=== PATIENT | female | born 1940 | race Caucasian/White ===

== ENCOUNTER 2018-12-09 20:25 | Inpatient (IN) ==
[2018-12-09] MEDS ORDERED: SODIUM CHLORIDE 0.9% 1000ML 1,000 ML IV ONE ×3 (21:44→23:19)
[2018-12-09] MEDS ORDERED: ALBUT/IPRATROP 3MG/0.5MG NEB 3 ML VIAL NEB ONE (21:45)
[2018-12-09 21:51] LABS: iSTAT Creatinine 1.9 mg/dl (0.6-1.3); iSTAT Hemoglobin 11.2 g/dl (12.0-16.0); iSTAT Ionized Calcium 1.05 mmol/l (1.12-1.32); iSTAT Potassium 5.4 mEq/L (3.3-5.0)
[2018-12-09 21:55] LABS: Basophils # (auto) 0.03 K/uL (0-0.2); Basophils % (auto) 0.3 %; Eosinophils # (auto) 0.21 K/uL (0-0.5); Eosinophils % (auto) 2.4 %; Hematocrit (blood only) 35.1 % (37-47); Hemoglobin 10.7 g/dL (12.0-16.0); Immature Granulocytes # (auto) 0.07 K/uL (0.00-0.02); Immature Granulocytes % (auto) 0.8 %; Lymphocytes # (auto) 1.93 K/uL (1.2-3.4); Lymphocytes % (auto) 21.8 %; Mean Corpuscular Hgb Conc 30.5 g/dL (32-36); Mean Corpuscular Volume 83.4 fL (80-100); Mean Platelet Volume 10.4 fL (7.4-10.4); Monocytes # (auto) 0.73 K/uL (0.11-0.59); Monocytes % (auto) 8.2 %; Neutrophils # (auto) 5.89 K/uL (1.4-6.5); Neutrophils % (auto) 66.5 %; Platelet Count 230 K/uL (130-400); RDW Coefficient of Variation 20.1 % (11.5-14.5); RDW Standard Deviation 54.5 fL (36.4-46.3); Red Blood Count 4.21 M/uL (4.2-5.4); White Blood Count 8.86 K/uL (4.8-10.8)
[2018-12-09] MEDS ORDERED: HYDROmorphone INJ 0.5 MG/0.5 ML SYR IV PRN (22:04)
[2018-12-09] MEDS ORDERED: ONDANSETRON INJ 2 MG/ML 2 ML VIAL IV STA (22:04)
--- NOTE | 2018-12-09 22:05 | XRay Report ---
XR chest 1V portable HISTORY: 78 years-old Female Sepsis acute sepsis COMPARISON: None available TECHNIQUE: Portable AP view of the chest FINDINGS: Cardiac silhouette is mildly enlarged. Calcification of the thoracic aortic arch. Dual-lead right sub clavian pacer is noted with leads appearing intact. Spinal stimulator leads noted overlying the midth oracic spine. Surgical clips project about the abdominal left upper quadrant. There is no pneumothora x, pleural effusion, focal airspace consolidation or overt pulmonary edema. Multiple remote healed ri ght-sided rib fractures. Postoperative changes of the right shoulder. Degenerative changes of the lópez ulders and spine. IMPRESSION: Cardiomegaly without acute process. The above report was generated using voice recognition software. It may contain grammatical, syntax o r spelling errors. Electronically signed by: Graham Solis M.D. 12/09/2018 10:04 PM
[2018-12-09 22:09] LABS: INR 1.2 (0.9-1.1); Partial Thromboplastin Time 26.4 Seconds (21.0-31.0); Prothrombin Time 11.9 Seconds (9.0-12.0)
[2018-12-09 22:13] LABS: Albumin Level 2.8 gm/dl (3.4-5.0); BUN Creatinine Ratio 20.5 (10-20); Blood Urea Nitrogen 39 mg/dl (7-18); Carbon Dioxide 22 mmol/L (21-32); Chloride 105 mmol/L (98-107); Creatinine Clr Calc Pharmacy 30.3 ml/min; Glucose 175 mg/dl (70-99); Potassium 5.6 mmol/L (3.5-5.1); Sodium 137 mmol/L (136-145)
[2018-12-09 22:19] LABS: Alanine Aminotransferase 57 U/L (12-78); Albumin Globulin Ratio 0.8 (0.9-2); Alkaline Phosphatase 86 U/L (45-117); Aspartate Aminotransferase 36 U/L (15-37); Bilirubin,Total 0.4 mg/dl (0.2-1); Creatine Kinase 58 U/L (26-192); Creatine Kinase MB 2.1 ng/ml (0.5-3.6); Globulin 3.7 gm/dl (2.5-4.0); Total Protein 6.5 gm/dl (6.4-8.2); Troponin I < 0.015 ng/ml (0-0.045)
[2018-12-09 22:39] LABS: Anisocytosis Present; Ovalocytes 1+; Pappenheimer Bodies 1+
[2018-12-09 22:40] LABS: Influenza A virus by PCR Neg for Influ A (Neg); Influenza B virus by PCR Neg for Influ B (Neg)
[2018-12-09] MEDS ORDERED: OPTIRAY 320 125ml IV PRN (22:46)
[2018-12-09] MEDS ORDERED: VANCOMYCIN CONSULT ACTIVE PRN (22:56)
[2018-12-09] MEDS ORDERED: PIPERACILL/TAZOBAC CONSULT ACTIVE PRN (22:56)
[2018-12-09] MEDS ORDERED: VANCOMYCIN HCL 2,000 MG in SODIUM CHLORIDE 0.9% 500 ML IV ONE (22:56)
[2018-12-09] MEDS ORDERED: PIPERACILLIN/TAZOBACTAM 4.5 GM/120 ML BAG IV ONE (22:56)
[2018-12-09] MEDS ORDERED: LEVOFLOXACIN/D5W 750 MG/150 ML BAG IV STA (22:56)
--- NOTE | 2018-12-09 23:02 | CT Scan Report ---
CT angio chest PE protocol CT DOSE: 697.32 mGy.cm HISTORY: 78 years-old Female with PE. Acute shortness of breath TECHNIQUE: Multiple CTA images of the chest were obtained after the intravenous administration of 113 ml Optiray 320. Coronal and sagittal MIPS were obtained from the axial data set and were submitted for review. All measurements were obtained according to NASCET criteria. A dose lowering technique w as utilized adhering to the principles of ALARA. COMPARISON: Chest radiograph of same day FINDINGS: Study is limited with a large portion of the contrast bolus infiltrating into the subcutaneous left u pper chest wall. CTA: Mild multichamber cardiac enlargement with small pericardial effusion. Left subclavian pacer is noted with leads overlying the right atrium and right ventricle. Aortic and mitral annular calcifications are noted in addition to coronary arterial calcifications. No thoracic aortic aneurysm or dissection. Patency of the imaged great vessels. Tortuosity of the descending thoracic aorta. Pulmonary arterial tree is opacified to the level of the lobar branches and demonstrates no focal filling defects to villalta ggest pulmonary thromboembolic disease. CT CHEST: No dominant thyroid nodule or adenopathy by CT size criteria. No pneumothorax or pleural effusion. Mi ld subsegmental bibasilar atelectasis. No focal airspace consolidation to suggest ammonia. 3 mm solid nodule of the right middle lobe, image 82 series 4. Additionally, there are a few benign-appearing a reas of subpleural nodularity measuring up to 3 mm the upper lung zones suggestive of benign pleural parenchymal scarring. 2 mm solid nodule of the right middle lobe on image 111 series 4. No suspicious nodules or masses. Central airways appear patent. No acute process of the imaged upper abdomen. Postoperative changes of the stomach. Mild wall thicken ing noted about the mid and distal esophagus. Spinal stimulator device is noted in the posterior late ral tissues about the midthoracic spine. Postoperative changes of the right shoulder. Multiple healed remote right-sided rib fractures. Demineralized appearance of the bones. IMPRESSION: 1. Limited study with a large portion of the contrast bolus infiltrated into the subcutaneous tissues about the left chest wall. 2. No evidence of central pulmonary thromboembolic disease. 3. Cardiomegaly with small pericardial effusion. 4. Multiple likely benign scattered solid pulmonary nodules measure up to 3 mm. Please refer to below summary of Fleischner criteria recommendations for follow-up of incidental CT n odules Sanjana Thomson, Guidelines for management of small pulmonary nodules detected on CT scans: A neisha smart from the Fleischner Society, Radiology 237: [phone].) SOLID NODULES Multiple nodules size: <6 mm * Low risk patients: no routine follow-up * high risk patients: optional CT at 12 months Note: newly detected indeterminate nodule in persons 35 years of age or older. * Low risk patients: minimal or absent history of smoking and/or other known risk factors * high risk patients: history of smoking or of other known risk factors (e.g. first degree relative with lung cancer, or exposure to asbestos, radon, uranium) * if a nodule up to 8 mm is partly solid or is ground glass further follow-up is required after 24 m onths to exclude possible slow growing adenocarcinoma (DIANA) The above report was generated using voice recognition software. It may contain grammatical, syntax o r spelling errors. Electronically signed by: Graham Solis M.D. 12/09/2018 10:59 PM
[2018-12-09] MEDS ORDERED: HYDROCORTISONE SOD SUCCINATE 100 MG/2 ML VIAL IV STA (23:30)
--- NOTE | 2018-12-10 00:56 | History & Physical Report ---
Date of Service December 10, 2018 Assessment & Plan (1) Hypotension: Ms. 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 ED Course: Patient found to be hypotensive on arrival with BP as low as 80s/40s. Patient received 3L NS bolus, 100mg IV hydrocortisone, duonebs, 4mg IV zofran, 4.5gm IV Zosyn, 2g IV vancomycin and 750mg IV Levaquin. -admit to telemetry -ddx for hypotension: dehydration, adrenal insufficiency, sepsis -at time of my examination, pt's BP was improved to 105/70 -patient had an elevated BUN of 39 and creatinine of 1.91. I do not have a baseline creatinine level for her, however her chart reveals her creatinine was 1.3 on 12/07/2018, with a BUN of 33. -her lactic acid was elevated to 3.8 on arrival, which could also be related to her hypotension. We will repeat a level in 6 hours -continue NS at 100 mls/hr x2 bags and hydrocortisone 50mg IV q8h -blood cx drawn x2 and pending -continue zosyn and vancomycin empirically -no evidence of pneumonia on chest CTA. Will order UA, however abx have already been started -no hx of CHF noted on transfer paperwork, will order an ECHO Hypoxia -transient, patient saturating at 100% on RA upon time of my exam -no evidence of acute pulmonary disease seen on CTA -continue to monitor -consider CHRISTIANNE as cause of transient desaturation Decreased Peripheral Pulses -b/l LE cool to touch w/diminished LE pulses and sluggish cap refill -no mention of PVD on pt's chart -vascular checks ordered, will also order b/l LE arterial dopplers History of CVA -no new neuro deficits noted -continue home aspirin -eventual d/c to inpatient rehab again Atrial Fibrillation/Tachy-marlene Syndrome -s/p pacemaker placement -continue home metoprolol, amiodarone and Eliquis Diabetes Mellitus -hold home metformin and insulin -BSG AC/HS and ISS ordered Anemia -Hgb was 10.2 on 12/07/2018. Hgb 10.7 here -normal MCV, no record of anemia on problem list -continue home iron supplementation Hypercholesterolemia -continue home atorvastatin GERD -continue home pantoprazole Restless Leg Syndrome -reportedly on gabapentin for this, continue home gabapentin Lung Nodules -seen on CTA, outpatient f/u Code status: DNR as per discussion with patient DVT Prophylaxis: continue home eliquis Disposition: admit to telemetry F/E/N: Heart Healthy and Diabetic Diet. Potassium high at 5.6. NS at 100 mls/hr x2 bags (2) Lactic acidosis: (3) History of CVA (cerebrovascular accident): (4) Diabetes mellitus: (5) Atrial fibrillation: (6) Pacemaker: (7) Hypercholesteremia: (8) Anemia: History of Present Illness Primary Care Provider: Albert Groves Ms. 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 Per review of chart, [facility] was unable to obtain an SPO2 level while Ms. Restrepo was on room air. They placed her on 4 L oxygen via nasal cannula, at which time her O2 saturations were 90%. They reported her nailbeds were cyanotic, and the patient was complaining of being extremely nauseous and fatigued. Ms. Restrepo endorses having felt "funny", cold, nauseous and short of breath. She denies any fever or chills, and states that she is not currently in any pain anywhere. She denies chest pain, lightheadedness, dizziness, palpitations, vomiting, or abdominal pain. She states that she has difficulty with weakness over the right side of her body and with word finding, but she states this has been constant since her recent stroke. She reports no other complaints at this time. She states that she has been eating fine, and has not been ill recently. She does endorse decreased water intake, stating that she prefers to drink tea. Allergies Allergy/AdvReac Type Severity Reaction Status Date / Time morphine Allergy Unknown Verified 12/09/18 21:35 oxycodone Allergy Unknown Verified 12/09/18 21:35 Home Medications Home Medications Medication Instructions Recorded Confirmed Type acetaminophen [Tylenol Extra 500 mg PO Q4 PRN 12/09/18 12/09/18 History Strength] amiodarone 200 mg PO Q12 12/09/18 12/09/18 History apixaban [Eliquis] 5 mg PO BID 12/09/18 12/09/18 History aspirin [Aspir-81] 81 mg PO DAILY 12/09/18 12/09/18 History atorvastatin 40 mg PO DAILY 12/09/18 12/09/18 History docusate sodium 100 mg PO BID 12/09/18 12/09/18 History ferrous sulfate 325 mg PO DAILY 12/09/18 12/09/18 History gabapentin 100 mg PO Q12 12/09/18 12/09/18 History insulin aspart U-100 [Novolog 1 sliding scale dose SUBCUT UD 12/09/18 12/09/18 History U-100 Insulin aspart] metformin 1,000 mg PO QAM 12/09/18 12/09/18 History metformin 500 mg PO QDD 12/09/18 12/09/18 History metoprolol succinate 25 mg PO DAILY 12/09/18 12/09/18 History nitroglycerin [Nitrostat] 0.4 mg SUBLINGUAL UD PRN 12/09/18 12/09/18 History pantoprazole 40 mg PO BID 12/09/18 12/09/18 History sennosides [senna] 8.6 mg PO DAILY 12/09/18 12/09/18 History Past Med/Surg History Social History Preferred Language: Greenlandic Communication Ability: Effective Clinical Unit Coordinator Required: No Beliefs That Will Affect Care: None Current Living Situation: Rehab current occupational status: retired Other Information That Helps Us Care for You: No Feels Safe at Home: Yes Safety Concerns: Feels Safe At This Time Smoking Status: Unknown if ever smoked Hx Alcohol Use: No Hx Substance Use: No Review of Systems Constitutional: + fatigue and + weakness; no fever, no chills, no sweats and no anorexia Respiratory: no cough and no wheezing Cardiovascular: no chest pain, no palpitations, no lightheadedness, no syncope, no edema and no calf pain Gastrointestinal: + nausea; no abdominal pain, no vomiting and no change in bowel habits Genitourinary (Female): no dysuria Musculoskeletal: + joint pain (right hip pain) Integumentary: no rash and no lesions Neurologic: + localized weakness (right side of body) and + abnormal speech Physical Exam Vital Signs (Past 24 Hours): Last Vital Signs Temp 36.6 C 12/09/18 20:29 Pulse 93 H 12/10/18 00:15 Resp 18 12/10/18 00:15 BP 95/50 L 12/10/18 00:15 Pulse Ox 99 12/10/18 00:15 Constitutional: well developed, well nourished, cooperative and comfortable Eyes: PERRL, conjunctivae normal, anicteric sclerae ENMT: external ear and nose normal, oropharynx normal Respiratory: normal respiratory effort, lungs clear to auscultation Cardiovascular: RRR, no murmur, no edema Vessels: posterior tibial pulses present (diminished b/l), dorsalis pedis pulses present (diminished b/l) and radial pulses present Extremities: normal capillary refill (sluggish cap refill, left slower than right) and + pedal edema; no calf tenderness Chest (Breasts): Additional Comments: longitudinal incision over right side of chest, healing well. No drainage noted. Right arm in sling. Gastrointestinal (Abdomen): Percussion/Palpation: abdomen soft; abdomen nontender, no guarding and abdomen not rigid Skin: multiple ecchymoses over arms b/l Neurologic: AXO x3 Difficulty w/word-finding. Right upper and lower extremity weaker compared w/left side. Supervising Physician Co-Signing Physician Notes 78 y/o F Hx recent MCA CVA, right-sided weakness and aphasia, CAD post stent placement, DM II, AF, HTN, HLD. At an NH where she was acutely hypoxic and proved hypotensive as well on arrival to the ER. Interestingly, she does not display any respiratory issues on arrival to the ER, however, she was hypotensive. Peripheral cyanosis was reported which persists and appears chronic. OE: Awake and oriented without 02 requirements S1,2 irr CTAB NT, ND BL edema Deficits are residual No CCE P: Initial precipitating episode is unclear at present - after a fluid bolus her pressure improved. She was given a dose of steroids and placed on Cortef. She is not hypoxic on admission and there is no clear evidence of infection. Adrenal insufficiency due to embolism/infarct is unlikely but should be entertained. An arrhythmia or rapid AF for a period may also have been a possibility. She is on Amiodarone ad eliquis for AF and rate controlled on admission. If she remains stable and no diagnosis is apparent, we could consider DC in the afternoon. Resident Activity Tracking Resident Involvement: Resident Care Provided Care Provided: Adult Hospital Medicine
[2018-12-10] MEDS ORDERED: CARBOHYDRATES FOR HYPOGLYCEMIA PO PRN (03:06)
[2018-12-10] MEDS ORDERED: ACETAMINOPHEN 325 MG TAB PO PRN (03:06)
[2018-12-10] MEDS ORDERED: GLUCAGON FOR INJ 1 MG VIAL SQ PRN (03:06)
[2018-12-10] MEDS ORDERED: GLUCOSE 10 TABS/TUBE PO PRN (03:06)
[2018-12-10] MEDS ORDERED: GLUCOSE 40% GEL 15 GM TUBE PO PRN (03:06)
[2018-12-10] MEDS ORDERED: DEXTROSE 50% 50 ML SYRINGE IV PRN (03:06)
[2018-12-10] MEDS: SODIUM CHLORIDE 0.9% 1000ML 1,000 ML IV SCH ×2 (03:45→12:47)
[2018-12-10] MEDS: PIPERACILLIN/TAZOBACTAM 3.375 GM in DEXTROSE 5% 100 ML IV SCH ×3 (05:11→21:38)
[2018-12-10 06:51] LABS: Basophils # (auto) 0.01 K/uL (0-0.2); Basophils % (auto) 0.2 %; Eosinophils # (auto) 0.01 K/uL (0-0.5); Eosinophils % (auto) 0.2 %; Hematocrit (blood only) 31.1 % (37-47); Hemoglobin 9.5 g/dL (12.0-16.0); Immature Granulocytes # (auto) 0.04 K/uL (0.00-0.02); Immature Granulocytes % (auto) 0.6 %; Lymphocytes # (auto) 0.64 K/uL (1.2-3.4); Lymphocytes % (auto) 9.8 %; Mean Corpuscular Hgb Conc 30.5 g/dL (32-36); Mean Corpuscular Volume 83.4 fL (80-100); Monocytes # (auto) 0.11 K/uL (0.11-0.59); Monocytes % (auto) 1.7 %; Neutrophils % (auto) 87.5 %; Platelet Count 191 K/uL (130-400); RDW Standard Deviation 54.7 fL (36.4-46.3); Red Blood Count 3.73 M/uL (4.2-5.4); White Blood Count 6.51 K/uL (4.8-10.8)
[2018-12-10 07:17] LABS: Anisocytosis Present
[2018-12-10 07:22] LABS: BUN Creatinine Ratio 22.2 (10-20); Calcium 7.7 mg/dl (8.5-10.1); Creatinine Clr Calc Pharmacy 37.8 ml/min; Est GFR (African American) 38.5; Est GFR (Non-African American) 33.2; Potassium 5.5 mmol/L (3.5-5.1)
[2018-12-10] MEDS ORDERED: HYDROCORTISONE SOD 50 MG in SYRINGE 0 ML IV SCH (08:00)
[2018-12-10] MEDS ORDERED: HYDROCORTISONE SOD SUCCINATE 100 MG/2 ML VIAL IV SCH (08:00)
[2018-12-10] MEDS: ATORVASTATIN 40 MG TAB PO SCH (08:35)
[2018-12-10] MEDS: PANTOprazole 40 MG TAB PO SCH ×2 (08:35→21:43)
[2018-12-10] MEDS: FERROUS SULFATE 325 MG TAB PO SCH (08:35)
[2018-12-10] MEDS: SENNA 8.6 MG TAB PO SCH (08:35)
[2018-12-10] MEDS: GABAPENTIN 100 MG CAP PO SCH ×2 (08:35→21:42)
[2018-12-10] MEDS: AMIODARONE 200 MG TAB PO SCH ×2 (08:36→21:42)
[2018-12-10] MEDS: METOPROLOL SUCC 25MG EXT REL TAB PO SCH (08:36)
[2018-12-10] MEDS: DOCUSATE SODIUM 100 MG CAP PO SCH ×2 (08:36→21:42)
[2018-12-10] MEDS: INSULIN ASPART 100 UNITS/ML 3 ML PEN SC SCH ×4 (08:36→21:45)
[2018-12-10] MEDS: APIXABAN 5 MG TABLET PO SCH ×2 (08:36→21:42)
[2018-12-10] MEDS: ASPIRIN 81 MG ECTAB PO SCH (08:36)
[2018-12-10] MEDS ORDERED: ONDANSETRON INJ 2 MG/ML 2 ML VIAL ONE (10:59)
[2018-12-10] MEDS: ONDANSETRON INJ 2 MG/ML 2 ML VIAL IV PRN (11:00)
--- NOTE | 2018-12-10 13:32 | Pharmacy Report ---
Pharmacy Abx Dose Short Note - Date of Service December 10, 2018 - Assessment & Plan A/P Pt being started on empiric vanco and zosyn. Renal fxn looks to be returning to her baseline. Pt population p'kinetics: t1/2=19, ke=0.0559. No trough ordered unless vanco is to continue beyond 48hrs. EI Zosyn 3.375g IV q8, appropriate for clinical status and eCrCl>20cc/min Pharmacy will continue to follow and will adjust dose/frequency as necessary. Thank you.
--- NOTE | 2018-12-10 15:40 | Family Medicine Progress Note ---
Date of Service December 10, 2018 Assessment & Plan (1) Hypotension: 78-year-old female was admitted (transferred from [facility]) on 10 December 2018 for hypoxia, cyanosis, and increased fatigue. Hypotension: Per [facility] records, initial BP was 94/66. Comparison on 26Feb was 118/66. Initial cause thought to be multifactorial to include dehydration and adrenal insufficiency. Afebrile, no leukocytosis, and lactate 3.8 (improving). Given IV fluids and hydrocortisone. 03Mar BCx pending. Started empirically on Zosyn and vancomycin as well as hydrocortisone every 8 hours. It is unclear if there is an infectious source causing this relative mild hypotension. - Will stop the vancomycin (due to nasal MRSA negative). We will also stop empiric hydrocortisone and check an a.m. cortisol. - For now, will remain on Zosyn until blood cultures return. Hypoxia: Per report, OSH was unable to obtain an SpO2 level initially and then was 90% on 4 L nasal cannula oxygen. Here, no hypoxia noted on room air. Monitoring. Decreased peripheral pulses: On admit, BLE were cool to touch with diminished pulses. No report of PVD and PMH. - Ordered BLE arterial Dopplers. Elevated creatinine: Initial Cr 1.91, improved to 1.51 with IVF. Elevated BUN, improving, as well. No recent creatinine comparisons available. Is on IV fluids. Hyperkalemia: Initial K 5.6. EKG is afib with PVC. Is on the forensic accountant. Will recheck in a.m. Anemia: Admit hemoglobin 10.7, down to 9.5 after IVF rehydration. Is on iron. Monitoring. Lung nodules: Per CTA chest, "multiple likely benign scattered solid pulmonary nodules measure up to 3 mm". Recommend follow-up as outpatient. 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 No new neuro deficits noted. On aspirin. - Hypertension, CAD s/p stent placement: On metoprolol succinate 25 mg PO daily. - Hyperlipidemia: Continue home atorvastatin. - Type II DM: At home is on metformin and NovoLog. - Atrial fibrillation and tachybradycardia syndrome s/p pacemaker placement: Continue home metoprolol, amiodarone, Eliquis. - GERD: Continue home pantoprazole. - Restless leg syndrome: Is on gabapentin for this. - Depression. Code status: DO NOT RESUSCITATE. Diet: Heart healthy, DM 2, minced and moist. DVT prophy: On home Eliquis. PT/OT: Deferred on admit. Disbo: Admitted to PCU telemetry. Will likely need to return to [facility] on discharge. (2) Hypoxia: (3) Decreased pulses in feet: (4) Elevated serum creatinine: (5) Hyperkalemia: (6) Anemia: (7) Lung nodules: (8) History of CVA (cerebrovascular accident): (9) Hypertension: (10) Hypercholesteremia: (11) Diabetes mellitus: (12) Atrial fibrillation: (13) Tachycardia-bradycardia syndrome: (14) GERD (gastroesophageal reflux disease): (15) Restless leg syndrome: (16) Depression: Supervising Physician Co-Signing Physician Notes Patient seen and examined with the resident. Agree with history, physical exam, assessment and plan with the following updates/corrections: 78yo F at [facility] for CVA who presented with hypoxemia and mild hypotension. Today, in good spirits. No distress and no focal complaints. BP remains low-normal, but otherwise in no distress. 1) Hypoxemia - Unclear etiology though possibly a mis-read as the patient has had good O2 sat on room air while inpatient. Will continue to monitor. 2) Hypotension - Per resident note, last BP read we have was ~115/70, so lower than baseline, but no by far. Possibly due to hypotension. Will monitor and give IV fluids until we can assess PO intake. Will also monitor hgb as could be from bleeding. 3) CKD - Baseline Cr unclear, but down to 1.5 from 1.9 on admission after IV hydration. Monitor Cr. Subjective Found patient resting comfortably. She has some expressive aphasia when trying to answer questions with more than a 1-2 word response. From what I can tell, overall she is not in any pain. She seems overall quite upbeat did not seem to try to be expressing any particular concern. Physical Exam Vital Signs (Past 24 Hours): Last Vital Signs Temp 36.7 C 12/10/18 10:47 Pulse 78 12/10/18 10:47 Resp 19 12/10/18 10:47 BP 98/42 L 12/10/18 10:47 Pulse Ox 94 12/10/18 07:44 Physical Exam: General Appearance: Awake, alert & oriented, comfortable in general, NAD. CV: +S1S2 RRR, no murmur. Pulm: Clear to auscultation throughout. Abdomen: +BS, soft, non-tender, non-distended. Extremities: Trace pedal edema bilaterally. No calf tenderness. Moving all extremities naturally and easily. Distal extremities are warm with good cap refill. Neuro: She is moving her bilateral upper extremities naturally without obvious deficit. There is some mild decreased strength on the right compared to left on strength testing. Similarly, she can wiggle her bilateral toes but has some difficulty with lifting her right leg off the bed. Results & Data Laboratory Results Laboratory Results WBC 6.51 K/uL (4.8-10.8) 12/10/18 06:19 RBC 3.73 M/uL (4.2-5.4) L 12/10/18 06:19 Hgb 9.5 g/dL (12.0-16.0) L 12/10/18 06:19 POC Hgb 11.2 g/dl (12.0-16.0) L 12/09/18 21:36 Hct 31.1 % (37-47) L 12/10/18 06:19 POC Hct 33 % (37-47) L 12/09/18 21:36 MCV 83.4 fL (80-100) 12/10/18 06:19 MCH 25.5 pg (25-34) 12/10/18 06:19 MCHC 30.5 g/dL (32-36) L 12/10/18 06:19 RDW Std Deviation 54.7 fL (36.4-46.3) H 12/10/18 06:19 RDW Coeff of Josselin 20.0 % (11.5-14.5) H 12/10/18 06:19 Plt Count 191 K/uL (130-400) 12/10/18 06:19 MPV 10.0 fL (7.4-10.4) 12/10/18 06:19 Immature Gran % (Auto) 0.6 % 12/10/18 06:19 Neut % (Auto) 87.5 % 12/10/18 06:19 Lymph % (Auto) 9.8 % 12/10/18 06:19 [place] % (Auto) 1.7 % 12/10/18 06:19 Eos % (Auto) 0.2 % 12/10/18 06:19 Baso % (Auto) 0.2 % 12/10/18 06:19 Immature Gran # (Auto) 0.04 K/uL (0.00-0.02) H 12/10/18 06:19 Neut # (Auto) 5.70 K/uL (1.4-6.5) 12/10/18 06:19 Lymph # (Auto) 0.64 K/uL (1.2-3.4) L 12/10/18 06:19 [place] # (Auto) 0.11 K/uL (0.11-0.59) 12/10/18 06:19 Eos # (Auto) 0.01 K/uL (0-0.5) 12/10/18 06:19 Baso # (Auto) 0.01 K/uL (0-0.2) 12/10/18 06:19 Hypersegmented Neuts 1+ 12/09/18 21:46 Anisocytosis Present 12/10/18 06:19 Pappenheimer Bodies 1+ 12/09/18 21:46 Ovalocytes 1+ 12/09/18 21:46 PT 11.9 Seconds (9.0-12.0) 12/09/18 21:46 INR 1.2 (0.9-1.1) H 12/09/18 21:46 APTT 26.4 Seconds (21.0-31.0) 12/09/18 21:46 PTT Ratio 1.0 12/09/18 21:46 POC Sodium 138 mEq/L (135-144) 12/09/18 21:36 Sodium 140 mmol/L (136-145) 12/10/18 06:19 POC Potassium 5.4 mEq/L (3.3-5.0) H 12/09/18 21:36 Potassium 5.5 mmol/L (3.5-5.1) H 12/10/18 06:19 POC Chloride 106 mEq/L (101-112) 12/09/18 21:36 Chloride 109 mmol/L (98-107) H 12/10/18 06:19 Carbon Dioxide 22 mmol/L (21-32) 12/10/18 06:19 POC Total CO2 23 mEq/l (24-31) L 12/09/18 21:36 Anion Gap 9.0 (3-11) 12/10/18 06:19 POC Anion Gap 16.0 mmol/L (16-25) 12/09/18 21:36 POC BUN 41 mg/dl (7-18) H 12/09/18 21:36 BUN 34 mg/dl (7-18) H 12/10/18 06:19 Creatinine 1.51 mg/dl (0.6-1.2) H D 12/10/18 06:19 POC Creatinine 1.9 mg/dl (0.6-1.3) H 12/09/18 21:36 Est Cr Clr Drug Dosing 37.8 ml/min 12/10/18 06:19 Est GFR ( Amer) 38.5 12/10/18 06:19 Est GFR (Non-Af Amer) 33.2 12/10/18 06:19 BUN/Creatinine Ratio 22.2 (10-20) H 12/10/18 06:19 Glucose 218 mg/dl (70-99) H 12/10/18 06:19 POC Glucose 315 (70-99) H 12/10/18 16:25 POC Glucose (other) 176 mg/dl (70-99) H 12/09/18 21:36 Lactate 2.1 mmol/L (0.4-2.0) H* 12/10/18 03:34 Calcium 7.7 mg/dl (8.5-10.1) L 12/10/18 06:19 POC Ioniz Calcium Ujlia 1.05 mmol/l (1.12-1.32) L 12/09/18 21:36 Total Bilirubin 0.4 mg/dl (0.2-1) 12/09/18 21:46 AST 36 U/L (15-37) 12/09/18 21:46 ALT 57 U/L (12-78) 12/09/18 21:46 Alkaline Phosphatase 86 U/L (45-117) 12/09/18 21:46 Total Creatine Kinase 58 U/L (26-192) 12/09/18 21:46 CK-MB (CK-2) 2.1 ng/ml (0.5-3.6) 12/09/18 21:46 CK/CKMB % Calc 3.6 (0-3.0) H 12/09/18 21:46 Troponin I < 0.015 ng/ml (0-0.045) 12/09/18 21:46 Total Protein 6.5 gm/dl (6.4-8.2) 12/09/18 21:46 Albumin 2.8 gm/dl (3.4-5.0) L 12/09/18 21:46 Globulin 3.7 gm/dl (2.5-4.0) 12/09/18 21:46 Albumin/Globulin Ratio 0.8 (0.9-2) L 12/09/18 21:46 Random Cortisol 66.11 mcg/dl 12/09/18 23:38 Nasal Screen MRSA (PCR) Negative (Negative) 12/10/18 03:38 Influenza Type A (PCR) Neg for Influ A (Neg) 12/09/18 21:55 Influenza Type B (PCR) Neg for Influ B (Neg) 12/09/18 21:55 Medications Administered Current Inpatient Medications Acetaminophen (Tylenol) 650 mg PO Q4H PRN PRN Reason: Pain or Fever Stop: 01/09/19 03:05 Amiodarone HCl (Cordarone) 200 mg PO Q12 [facility] Stop: 01/09/19 08:59 Last Admin: 12/10/18 08:36 Dose: 200 mg Documented by: Apixaban (Eliquis) 5 mg PO BID [facility] Stop: 01/09/19 08:59 Last Admin: 12/10/18 08:36 Dose: 5 mg Documented by: Aspirin (Ecotrin Ectab) 81 mg PO DAILY [facility] Stop: 01/09/19 08:59 Last Admin: 12/10/18 08:36 Dose: 81 mg Documented by: Atorvastatin Calcium (Lipitor) 40 mg PO DAILY [facility] Stop: 01/09/19 08:59 Last Admin: 12/10/18 08:35 Dose: 40 mg Documented by: Dextrose (Dextrose 50%) 25 - 50 ml IV UD PRN; Protocol PRN Reason: Hypoglycemia Protocol Stop: 01/09/19 03:05 Docusate Sodium (Colace) 100 mg PO BID [facility] Stop: 01/09/19 08:59 Last Admin: 12/10/18 08:36 Dose: 100 mg Documented by: Ferrous Sulfate (Feosol) 325 mg PO DAILY [facility] Stop: 01/09/19 08:59 Last Admin: 12/10/18 08:35 Dose: 325 mg Documented by: Gabapentin (Neurontin) 100 mg PO Q12 [facility] Stop: 01/09/19 08:59 Last Admin: 12/10/18 08:35 Dose: 100 mg Documented by: Glucagon (Glucagen) 1 mg SQ UD PRN; Protocol PRN Reason: Hypoglycemia Protocol Stop: 01/09/19 03:05 Glucose (Glucose 40%) 15 - 30 gm PO UD PRN; Protocol PRN Reason: Hypoglycemia Protocol Stop: 01/09/19 03:05 Glucose (Dex4 Glucose) 4 - 8 tabs PO UD PRN; Protocol PRN Reason: Hypoglycemia Protocol Stop: 01/09/19 03:05 Sodium Chloride (Nss 1000ml) 1,000 mls @ 100 mls/hr IV .Q10H [facility] Stop: 12/10/18 23:05 Last Admin: 12/10/18 12:47 Dose: 100 mls/hr Documented by: Piperacillin Sod/Tazobactam (Sod 3.375 gm/ Dextrose) 115 mls @ 28.75 mls/hr IV Q8H [facility]; Protocol Stop: 12/17/18 03:59 Last Infusion: 12/10/18 15:05 Dose: Infused Documented by: Insulin Aspart (Novolog Flexpen) 0 units SC ACHS [facility] Stop: 01/09/19 07:29 Last Admin: 12/10/18 12:44 Dose: 3 units Documented by: Ioversol (Optiray 320 125ml) 113 ml IV ONCE PRN PRN Reason: Interaction Checking Stop: 12/13/18 22:45 Last Admin: 12/09/18 22:46 Dose: 1 ml Documented by: Metoprolol Succinate (Toprol Xl) 25 mg PO DAILY [facility] Stop: 01/09/19 08:59 Last Admin: 12/10/18 08:36 Dose: 25 mg Documented by: Miscellaneous (Carbohydrates For Hypoglycemia) 15 - 30 gm PO UD PRN PRN Reason: Hypoglycemia Treatment Stop: 01/09/19 03:05 Miscellaneous Information (Consult) 1 ea N/A UD PRN PRN Reason: Consult Stop: 01/08/19 22:55 Ondansetron HCl (Zofran) 4 mg IV Q6H PRN PRN Reason: Nausea Stop: 01/09/19 10:43 Last Admin: 12/10/18 11:00 Dose: 4 mg Documented by: Pantoprazole Sodium (Protonix) 40 mg PO BID [facility] Stop: 01/09/19 08:59 Last Admin: 12/10/18 08:35 Dose: 40 mg Documented by: Sennosides (Senokot) 8.6 mg PO DAILY [facility] Stop: 01/09/19 08:59 Last Admin: 12/10/18 08:35 Dose: 8.6 mg Documented by: Resident Activity Tracking Resident Involvement: Resident Care Provided Care Provided: Adult Hospital Medicine
--- NOTE | 2018-12-10 16:51 | Ultrasound Report ---
US arterial duplex LE BI CLINICAL HISTORY: 78 years-old Female presenting with diminished pulses, dusky appearing. TECHNIQUE: Real-time grayscale and color and spectral Doppler ultrasound imaging of the arteries was performed. Measurements calculated based on NASCET criteria. COMPARISON: None. FINDINGS: RIGHT: Common femoral artery: Patent. Triphasic waveforms. Peak systolic velocity (PSV) 101 cm/s. Deep femoral artery: Patent. Biphasic waveforms. PSV 89 cm/s. Superficial femoral artery: Patent. Monophasic waveforms. PSV 83 cm/s. Popliteal artery: Patent. Monophasic waveforms. PSV 53 cm/s. Anterior tibial artery: Patent. Monophasic waveforms. PSV 34 cm/s. Posterior tibial artery: Not visualized due to extensive shadowing related to subcutaneous tissue thi ckening. Peroneal artery: Not visualized due to extensive shadowing related to subcutaneous tissue thickening. Dorsalis pedis: Patent. Monophasic waveforms. PSV 17 cm/s. LEFT: Common femoral artery: Patent. Triphasic waveforms. Peak systolic velocity (PSV) 100 cm/s. Deep femoral artery: Patent. Triphasic waveforms. PSV 122 cm/s. Superficial femoral artery: Patent. Biphasic waveforms. PSV 113 cm/s. Popliteal artery: Patent. Triphasic waveforms. PSV 71-132 cm/s. Anterior tibial artery: Patent. Monophasic waveforms. PSV 16 cm/s. Posterior tibial artery: Not visualized due to extensive shadowing related to subcutaneous tissue thi ckening. Peroneal artery: Not visualized due to extensive shadowing related to subcutaneous tissue thickening. Dorsalis pedis: Patent. Monophasic waveforms. PSV 17 cm/s. ANKLE/BRACHIAL INDEX (LI): Unable to perform due to patient intolerance. Brachial: Right: mmHg. Left: mmHg. Ankle (posterior tibial): Right: mmHg. Left: mmHg. Ankle (dorsalis pedis): Right: mmHg. Left: mmHg. Ankle/brachial index: Right: , Left: . Reference ranges: Normal Ankle/Brachial Index (LI) 1.0-1.4; 0.91-0.99 borderline; < or = 0.9 abnormal (0.7-0.89 mild, 0.51-0.69 moderate, < or = 0.5 severe peripheral arterial disease). Normal Toe/Brachial Index (TBI) > or = 0.6; < 0.6 abnormal (0.34-0.59 mild, 0.12-0.34 moderate, < or = 0.11 severe peripheral arterial disease). IMPRESSION: 1. No hemodynamically significant stenosis. Monophasic waveforms throughout the lower extremities villalta ggests diffuse atherosclerosis. 2. Nonvisualization of the bilateral posterior tibial and peroneal arteries due to subcutaneous skin thickening. 3. Unable to perform ankle-brachial indices. Electronically signed by: Duncan Cornelius M.D. 12/10/2018 4:50 PM
[2018-12-10] MEDS ORDERED: VANCOMYCIN HCL 1,250 MG in SODIUM CHLORIDE 0.9% 250 ML IV SCH (22:00)
[2018-12-11] MEDS: PIPERACILLIN/TAZOBACTAM 3.375 GM in DEXTROSE 5% 100 ML IV SCH (05:21)
[2018-12-11 07:24] LABS: Basophils # (auto) 0.04 K/uL (0-0.2); Basophils % (auto) 0.5 %; Eosinophils # (auto) 0.13 K/uL (0-0.5); Eosinophils % (auto) 1.7 %; Hematocrit (blood only) 29.2 % (37-47); Hemoglobin 8.9 g/dL (12.0-16.0); Immature Granulocytes # (auto) 0.03 K/uL (0.00-0.02); Immature Granulocytes % (auto) 0.4 %; Lymphocytes # (auto) 1.85 K/uL (1.2-3.4); Lymphocytes % (auto) 24.9 %; Mean Corpuscular Hgb Conc 30.5 g/dL (32-36); Mean Corpuscular Volume 83.7 fL (80-100); Mean Platelet Volume 9.9 fL (7.4-10.4); Monocytes # (auto) 0.63 K/uL (0.11-0.59); Monocytes % (auto) 8.5 %; Neutrophils # (auto) 4.76 K/uL (1.4-6.5); Platelet Count 188 K/uL (130-400); RDW Coefficient of Variation 20.6 % (11.5-14.5); RDW Standard Deviation 55.9 fL (36.4-46.3); Red Blood Count 3.49 M/uL (4.2-5.4); White Blood Count 7.44 K/uL (4.8-10.8)
[2018-12-11] MEDS: AMIODARONE 200 MG TAB PO SCH ×2 (07:43→20:33)
[2018-12-11] MEDS: FERROUS SULFATE 325 MG TAB PO SCH (07:43)
[2018-12-11] MEDS: PANTOprazole 40 MG TAB PO SCH ×2 (07:43→20:34)
[2018-12-11] MEDS: ATORVASTATIN 40 MG TAB PO SCH (07:43)
[2018-12-11] MEDS: METOPROLOL SUCC 25MG EXT REL TAB PO SCH (07:43)
[2018-12-11] MEDS: APIXABAN 5 MG TABLET PO SCH ×2 (07:44→20:34)
[2018-12-11] MEDS: DOCUSATE SODIUM 100 MG CAP PO SCH ×2 (07:44→20:34)
[2018-12-11] MEDS: SENNA 8.6 MG TAB PO SCH (07:44)
[2018-12-11] MEDS: ASPIRIN 81 MG ECTAB PO SCH (07:44)
[2018-12-11] MEDS: GABAPENTIN 100 MG CAP PO SCH ×2 (07:44→20:34)
[2018-12-11] MEDS: INSULIN ASPART 100 UNITS/ML 3 ML PEN SC SCH ×4 (07:46→20:34)
[2018-12-11 07:58] LABS: Anisocytosis Present
[2018-12-11 08:00] LABS: BUN Creatinine Ratio 20.2 (10-20); Calcium 7.6 mg/dl (8.5-10.1); Est GFR (African American) 37.6; Est GFR (Non-African American) 32.4; Magnesium 1.9 mg/dl (1.8-2.4); Potassium 4.2 mmol/L (3.5-5.1)
--- NOTE | 2018-12-11 10:31 | Family Medicine Progress Note ---
Date of Service December 11, 2018 Assessment & Plan (1) Hypotension: 78-year-old female was admitted (transferred from [facility]) on 10 December 2018 for hypoxia, cyanosis, and increased fatigue. Hypotension: Per [facility] records, initial BP was 94/66. Comparison on 26Feb was 118/66. Initial cause thought to be multifactorial to include dehydration and adrenal insufficiency. Afebrile, no leukocytosis, and lactate 3.8 (now resolved). Given IV fluids and hydrocortisone. 03Mar BCx NGTD. Started empirically on Zosyn and vancomycin as well as scheduled hydrocortisone. An infectious source seems unlikely at this point causing this relative mild hypotension. 04Mar TTE noted EF >70%, hyperdynamic LV, mild concentric LVH, as well as mild MR and TR. Have since stopped the vancomycin, hydrocortisone, and Zosyn. Normal AM cortisol. Hypoxia: Per report, OSH was unable to obtain an SpO2 level initially and then was 90% on 4 L NC oxygen. Here, no hypoxia noted on room air. Monitoring. Decreased peripheral pulses: On admit, BLE were cool to touch with diminished pulses. No report of PVD and PMH. 04Mar ultrasound arterial duplex of the BLE noted no hemodynamically significant stenosis, waveforms suggestive of atherosclerosis, but was unable to perform LI due to patient intolerance. Present has good pulses, is warm to touch, and remains asymptomatic. Monitoring. Elevated creatinine: Initial Cr 1.91, stabilized to around 1.5 with IVF. Elevated BUN, improving, as well. No recent creatinine comparisons available. Is on IV fluids. Hyperkalemia: Initial K 5.6, resolved to 4.2. EKG is afib with PVC. Is on the remote inpatient coder. Anemia: Admit hemoglobin 10.7, down to 8.9 after IVF rehydration. Is on iron. Monitoring. Lung nodules: Per CTA chest, "multiple likely benign scattered solid pulmonary nodules measure up to 3 mm". Recommend follow-up as outpatient. 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 No new neuro deficits noted. On aspirin. - Hypertension, CAD s/p stent placement: On metoprolol succinate 25 mg PO daily. - Hyperlipidemia: Continue home atorvastatin. - Type II DM: At home is on metformin and NovoLog. - Atrial fibrillation and tachybradycardia syndrome s/p pacemaker placement: Continue home metoprolol, amiodarone, Eliquis. - GERD: Continue home pantoprazole. - Restless leg syndrome: Is on gabapentin for this. - Depression. Code status: DO NOT RESUSCITATE. Diet: Heart healthy, DM 2, minced and moist. DVT prophy: On home Eliquis. PT/OT: Deferred on admit. Disbo: Admitted to PCU telemetry. Will likely to return to [facility] on discharge. (2) Hypoxia: (3) Decreased pulses in feet: (4) Elevated serum creatinine: (5) Hyperkalemia: (6) Anemia: (7) Lung nodules: (8) History of CVA (cerebrovascular accident): (9) Hypertension: (10) Hypercholesteremia: (11) Diabetes mellitus: (12) Atrial fibrillation: (13) Tachycardia-bradycardia syndrome: (14) GERD (gastroesophageal reflux disease): (15) Restless leg syndrome: (16) Depression: Supervising Physician Co-Signing Physician Notes Patient seen and examined with the resident. Agree with history, physical exam, assessment and plan with the following updates/corrections: 78yo F at [facility] for CVA who presented with hypoxemia and mild hypotension. Today, in good spirits. Still in good spirits and no complaints. Asking to go back to rehab. BP stable. 1) Hypoxemia - Unclear etiology though possibly a mis-read as the patient has had good O2 sat on room air while inpatient. Will continue to monitor. 2) Hypotension - BP has been stable at 100-110/60-70. Stopping Zosyn today as she has no real focal infection complaints/issues. Will monitor BP off abx and follow cultures x 24 hours. Hgb down at ~9.0, but no dramatic drop since admission. 3) Acute kidney failure on CKD, unknown stage - Baseline Cr unclear, but down to 1.5 from 1.9 on admission after IV hydration. Cr stable at 1.5 as of 12/10. Subjective Found patient resting comfortably earlier this morning. She is quite upbeat and her expressive aphasia does not seem severe today. She was very excited about her being able to walk to the bathroom with a walker. She says that her right hip area continues to hurt her that it is manageable. She is happy that she seems like she is improving. She would like to return back to [facility] and wants to make sure that she did not lose her bed because she would like to finish her rehab relatively on schedule. She did not seem to have any other acute concerns. Physical Exam Vital Signs (Past 24 Hours): Last Vital Signs Temp 36.7 C 12/11/18 07:02 Pulse 83 12/11/18 07:02 Resp 19 12/11/18 07:02 BP 113/71 12/11/18 07:02 Pulse Ox 97 12/11/18 07:02 Physical Exam: General Appearance: Awake, alert & oriented, comfortable in general, NAD. CV: +S1S2 RRR, no murmur. Pulm: Clear to auscultation throughout. Abdomen: +BS, soft, non-tender, non-distended. Extremities: Trace pedal edema bilaterally. No calf tenderness. Moving all extremities naturally and easily. Distal extremities are warm with good cap refill. Neuro: She is moving her bilateral upper extremities naturally without obvious deficit. Results & Data Laboratory Results Laboratory Results WBC 7.44 K/uL (4.8-10.8) 12/11/18 07:08 RBC 3.49 M/uL (4.2-5.4) L 12/11/18 07:08 Hgb 8.9 g/dL (12.0-16.0) L 12/11/18 07:08 POC Hgb 11.2 g/dl (12.0-16.0) L 12/09/18 21:36 Hct 29.2 % (37-47) L 12/11/18 07:08 POC Hct 33 % (37-47) L 12/09/18 21:36 MCV 83.7 fL (80-100) 12/11/18 07:08 MCH 25.5 pg (25-34) 12/11/18 07:08 MCHC 30.5 g/dL (32-36) L 12/11/18 07:08 RDW Std Deviation 55.9 fL (36.4-46.3) H 12/11/18 07:08 RDW Coeff of Josselin 20.6 % (11.5-14.5) H 12/11/18 07:08 Plt Count 188 K/uL (130-400) 12/11/18 07:08 MPV 9.9 fL (7.4-10.4) 12/11/18 07:08 Immature Gran % (Auto) 0.4 % 12/11/18 07:08 Neut % (Auto) 64.0 % 12/11/18 07:08 Lymph % (Auto) 24.9 % 12/11/18 07:08 [place] % (Auto) 8.5 % 12/11/18 07:08 Eos % (Auto) 1.7 % 12/11/18 07:08 Baso % (Auto) 0.5 % 12/11/18 07:08 Immature Gran # (Auto) 0.03 K/uL (0.00-0.02) H 12/11/18 07:08 Neut # (Auto) 4.76 K/uL (1.4-6.5) 12/11/18 07:08 Lymph # (Auto) 1.85 K/uL (1.2-3.4) 12/11/18 07:08 [place] # (Auto) 0.63 K/uL (0.11-0.59) H 12/11/18 07:08 Eos # (Auto) 0.13 K/uL (0-0.5) 12/11/18 07:08 Baso # (Auto) 0.04 K/uL (0-0.2) 12/11/18 07:08 Hypersegmented Neuts 1+ 12/09/18 21:46 Anisocytosis Present 12/11/18 07:08 Pappenheimer Bodies 1+ 12/09/18 21:46 Ovalocytes 1+ 12/09/18 21:46 PT 11.9 Seconds (9.0-12.0) 12/09/18 21:46 INR 1.2 (0.9-1.1) H 12/09/18 21:46 APTT 26.4 Seconds (21.0-31.0) 12/09/18 21:46 PTT Ratio 1.0 12/09/18 21:46 POC Sodium 138 mEq/L (135-144) 12/09/18 21:36 Sodium 142 mmol/L (136-145) 12/11/18 07:08 POC Potassium 5.4 mEq/L (3.3-5.0) H 12/09/18 21:36 Potassium 4.2 mmol/L (3.5-5.1) D 12/11/18 07:08 POC Chloride 106 mEq/L (101-112) 12/09/18 21:36 Chloride 113 mmol/L (98-107) H 12/11/18 07:08 Carbon Dioxide 22 mmol/L (21-32) 12/11/18 07:08 POC Total CO2 23 mEq/l (24-31) L 12/09/18 21:36 Anion Gap 7.0 (3-11) 12/11/18 07:08 POC Anion Gap 16.0 mmol/L (16-25) 12/09/18 21:36 POC BUN 41 mg/dl (7-18) H 12/09/18 21:36 BUN 31 mg/dl (7-18) H 12/11/18 07:08 Creatinine 1.54 mg/dl (0.6-1.2) H 12/11/18 07:08 POC Creatinine 1.9 mg/dl (0.6-1.3) H 12/09/18 21:36 Est Cr Clr Drug Dosing 37.0 ml/min 12/11/18 07:08 Est GFR ( Amer) 37.6 12/11/18 07:08 Est GFR (Non-Af Amer) 32.4 12/11/18 07:08 BUN/Creatinine Ratio 20.2 (10-20) H 12/11/18 07:08 Glucose 137 mg/dl (70-99) H 12/11/18 07:08 POC Glucose 149 (70-99) H 12/11/18 07:18 POC Glucose (other) 176 mg/dl (70-99) H 12/09/18 21:36 Lactate 1.0 mmol/L (0.4-2.0) 12/11/18 07:08 Calcium 7.6 mg/dl (8.5-10.1) L 12/11/18 07:08 POC Ioniz Calcium Julia 1.05 mmol/l (1.12-1.32) L 12/09/18 21:36 Magnesium 1.9 mg/dl (1.8-2.4) 12/11/18 07:08 Total Bilirubin 0.4 mg/dl (0.2-1) 12/09/18 21:46 AST 36 U/L (15-37) 12/09/18 21:46 ALT 57 U/L (12-78) 12/09/18 21:46 Alkaline Phosphatase 86 U/L (45-117) 12/09/18 21:46 Total Creatine Kinase 58 U/L (26-192) 12/09/18 21:46 CK-MB (CK-2) 2.1 ng/ml (0.5-3.6) 12/09/18 21:46 CK/CKMB % Calc 3.6 (0-3.0) H 12/09/18 21:46 Troponin I < 0.015 ng/ml (0-0.045) 12/09/18 21:46 Total Protein 6.5 gm/dl (6.4-8.2) 12/09/18 21:46 Albumin 2.8 gm/dl (3.4-5.0) L 12/09/18 21:46 Globulin 3.7 gm/dl (2.5-4.0) 12/09/18 21:46 Albumin/Globulin Ratio 0.8 (0.9-2) L 12/09/18 21:46 Random Cortisol 66.11 mcg/dl 12/09/18 23:38 Cortisol AM Sample 10.22 mcg/dl (4.3-22.4) 12/11/18 07:08 Nasal Screen MRSA (PCR) Negative (Negative) 12/10/18 03:38 Influenza Type A (PCR) Neg for Influ A (Neg) 12/09/18 21:55 Influenza Type B (PCR) Neg for Influ B (Neg) 12/09/18 21:55 Medications Administered Current Inpatient Medications Acetaminophen (Tylenol) 650 mg PO Q4H PRN PRN Reason: Pain or Fever Stop: 01/09/19 03:05 Amiodarone HCl (Cordarone) 200 mg PO Q12 [facility] Stop: 01/09/19 08:59 Last Admin: 12/11/18 07:43 Dose: 200 mg Documented by: Apixaban (Eliquis) 5 mg PO BID [facility] Stop: 01/09/19 08:59 Last Admin: 12/11/18 07:44 Dose: 5 mg Documented by: Aspirin (Ecotrin Ectab) 81 mg PO DAILY [facility] Stop: 01/09/19 08:59 Last Admin: 12/11/18 07:44 Dose: 81 mg Documented by: Atorvastatin Calcium (Lipitor) 40 mg PO DAILY [facility] Stop: 01/09/19 08:59 Last Admin: 12/11/18 07:43 Dose: 40 mg Documented by: Dextrose (Dextrose 50%) 25 - 50 ml IV UD PRN; Protocol PRN Reason: Hypoglycemia Protocol Stop: 01/09/19 03:05 Docusate Sodium (Colace) 100 mg PO BID [facility] Stop: 01/09/19 08:59 Last Admin: 12/11/18 07:44 Dose: Not Given Documented by: Ferrous Sulfate (Feosol) 325 mg PO DAILY [facility] Stop: 01/09/19 08:59 Last Admin: 12/11/18 07:43 Dose: 325 mg Documented by: Gabapentin (Neurontin) 100 mg PO Q12 [facility] Stop: 01/09/19 08:59 Last Admin: 12/11/18 07:44 Dose: 100 mg Documented by: Glucagon (Glucagen) 1 mg SQ UD PRN; Protocol PRN Reason: Hypoglycemia Protocol Stop: 01/09/19 03:05 Glucose (Glucose 40%) 15 - 30 gm PO UD PRN; Protocol PRN Reason: Hypoglycemia Protocol Stop: 01/09/19 03:05 Glucose (Dex4 Glucose) 4 - 8 tabs PO UD PRN; Protocol PRN Reason: Hypoglycemia Protocol Stop: 01/09/19 03:05 Piperacillin Sod/Tazobactam (Sod 3.375 gm/ Dextrose) 115 mls @ 28.75 mls/hr IV Q8H [facility]; Protocol Stop: 12/17/18 03:59 Last Infusion: 12/11/18 09:32 Dose: Infused Documented by: Insulin Aspart (Novolog Flexpen) 0 units SC ACHS [facility] Stop: 01/09/19 07:29 Last Admin: 12/11/18 07:46 Dose: 3 units Documented by: Ioversol (Optiray 320 125ml) 113 ml IV ONCE PRN PRN Reason: Interaction Checking Stop: 12/13/18 22:45 Last Admin: 12/09/18 22:46 Dose: 1 ml Documented by: Metoprolol Succinate (Toprol Xl) 25 mg PO DAILY [facility] Stop: 01/09/19 08:59 Last Admin: 12/11/18 07:43 Dose: 25 mg Documented by: Miscellaneous (Carbohydrates For Hypoglycemia) 15 - 30 gm PO UD PRN PRN Reason: Hypoglycemia Treatment Stop: 01/09/19 03:05 Miscellaneous Information (Consult) 1 ea N/A UD PRN PRN Reason: Consult Stop: 01/08/19 22:55 Ondansetron HCl (Zofran) 4 mg IV Q6H PRN PRN Reason: Nausea Stop: 01/09/19 10:43 Last Admin: 12/10/18 11:00 Dose: 4 mg Documented by: Pantoprazole Sodium (Protonix) 40 mg PO BID [facility] Stop: 01/09/19 08:59 Last Admin: 12/11/18 07:43 Dose: 40 mg Documented by: Sennosides (Senokot) 8.6 mg PO DAILY [facility] Stop: 01/09/19 08:59 Last Admin: 12/11/18 07:44 Dose: Not Given Documented by: Resident Activity Tracking Resident Involvement: Resident Care Provided Care Provided: Adult Hospital Medicine
--- NOTE | 2018-12-11 18:07 | Discharge Summary ---
Date of Service IN PROGRESS IN PROGRESS IN PROGRESS Admission HPI Per Admitting Provider Ms. Restrepo is a 78 year old, very pleasant lady with a history of left-sided MCA stroke with residual right-sided weakness and aphasia, coronary artery disease status post stent placement, uncontrolled type 2 diabetes mellitus [hemoglobin A1c of 11.8], atrial fibrillation, hyperlipidemia, hypertension, depression who was transferred to the emergency department from [facility] due to hypoxia, cyanosis, and feeling extremely fatigued. Per review of chart, [facility] was unable to obtain an SPO2 level while Ms. Restrepo was on room air. They placed her on 4 L oxygen via nasal cannula, at which time her O2 saturations were 90%. They reported her nailbeds were cyanotic, and the patient was complaining of being extremely nauseous and fatigued. Ms. Restrepo endorses having felt "funny", cold, nauseous and short of breath. She denies any fever or chills, and states that she is not currently in any pain anywhere. She denies chest pain, lightheadedness, dizziness, palpitations, vomiting, or abdominal pain. She states that she has difficulty with weakness over the right side of her body and with word finding, but she states this has been constant since her recent stroke. She reports no other complaints at this time. She states that she has been eating fine, and has not been ill recently. She does endorse decreased water intake, stating that she prefers to drink tea. Admission Exam Per Admitting Provider Constitutional: well developed, well nourished, cooperative and comfortable Eyes: PERRL, conjunctivae normal, anicteric sclerae ENMT: external ear and nose normal, oropharynx normal Respiratory: normal respiratory effort, lungs clear to auscultation Cardiovascular: RRR, no murmur, no edema Vessels: posterior tibial pulses present (diminished b/l), dorsalis pedis pulses present (diminished b/l) and radial pulses present Extremities: normal capillary refill (sluggish cap refill, left slower than right) and + pedal edema; no calf tenderness Chest (Breasts): Additional Comments: longitudinal incision over right side of chest, healing well. No drainage noted. Right arm in sling. Gastrointestinal (Abdomen): Percussion/Palpation: abdomen soft; abdomen nontender, no guarding and abdomen not rigid Skin: multiple ecchymoses over arms b/l Neurologic: AXO x3 Difficulty w/word-finding. Right upper and lower extremity weaker compared w/left side. Principal Diagnosis Hypotension, transient hypoxia Discharge Exam IN PROGRESS IN PROGRESS IN PROGRESS Discharge Data Allergies Allergy/AdvReac Type Severity Reaction Status Date / Time morphine Allergy Unknown Verified 12/09/18 21:35 oxycodone Allergy Unknown Verified 12/09/18 21:35 Procedures Performed Transthoracic echocardiogram on 10 December 2018 (see full report) The left ventricle is hyperdynamic. No regional wall abnormalities noted. Ejection fraction is => 70%. There is mild concentric LVH. There is mild mitral regurgitation. There is mild tricuspid regurgitation. CTA of the chest on 09 December 2018 IMPRESSION: 1. Limited study with a large portion of the contrast bolus infiltrated into the subcutaneous tissues about the left chest wall. 2. No evidence of central pulmonary thromboembolic disease. 3. Cardiomegaly with small pericardial effusion. 4. Multiple likely benign scattered solid pulmonary nodules measure up to 3 mm. Bilateral lower extremity arterial duplex ultrasound on 10 December 2018 IMPRESSION: 1. No hemodynamically significant stenosis. Monophasic waveforms throughout the lower extremities suggests diffuse atherosclerosis. 2. Nonvisualization of the bilateral posterior tibial and peroneal arteries due to subcutaneous skin thickening. 3. Unable to perform ankle-brachial indices. Hospital Course (1) Hypotension: IN PROGRESS IN PROGRESS IN PROGRESS (2) Hypoxia: (3) Decreased pulses in feet: (4) Elevated serum creatinine: (5) Hyperkalemia: (6) Anemia: (7) Lung nodules: (8) History of CVA (cerebrovascular accident): (9) Hypertension: (10) Hypercholesteremia: (11) Diabetes mellitus: (12) Atrial fibrillation: (13) Tachycardia-bradycardia syndrome: (14) GERD (gastroesophageal reflux disease): (15) Restless leg syndrome: (16) Depression: Total Time Total Time Spent Total Time Spent (In Minutes): > 30 min Discharge Plan Discharge Items Patient Disposition: Transfer Inpatient Rehab Fac Reason For Visit: HYPOTENSION,LACTIC ACIDOSIS Discharge Diagnosis: Hypotension, transient hypoxia Discharge Goals: Decrease discomfort, Improve function and Increase independence Activity: Per 'Additional Instructions' section Non-emergency contact: Primary Care Provider Call non-emergency contact if: you have any medication questions Follow-up/Referrals: Albert Groves [Primary Care Provider] - Diet: Carb Consistent or DM2 and Heart Healthy Diet Comment: Minced and moist Addtl Provider Instructions: You were transferred from [facility] on December 10, 2018 due to concerns for lower blood pressure and some low oxygen levels in your blood. While in our hospital, we evaluated the following issues: Hypotension (low blood pressure): While the exact cause is unclear, this was thought to be related to some dehydration. After multiple tests, there is no evidence of an infection at present, therefore we stopped the initial antibiotics you received. We also checked your heart with an ultrasound machine. - Overall it is important that you remain well-hydrated. Hypoxia (low blood oxygen levels): [facility] was concerned that her oxygen level was very low prior to arrival to the hospital. Fortunately, during your hospital stay your oxygen levels were normal without needing any extra oxygen. Concerns for cool/cold extremities: There was also initial concern that your legs were not getting enough blood flow. We did some testing of the blood flow in your legs. While it is not perfect, it does appear that you are getting adequate blood flow throughout your legs. Anemia (low blood counts): During her routine blood test, it was noted that the level of your red blood cells that carry around the oxygen are a bit low. - We recommend that you follow-up closely with your treating providers to make sure these levels remain in a safe range. Lung nodules: When we did the CT scan of your chest, the scan showed that you have multiple small (up to 3 mm) lung nodules present. We recommend that you follow-up with your primary care provider as soon as possible for close monitoring of these. Overall, this should be no changes to your previous medication regimen that you are on prior to this hospitalization. You are being discharged back to [facility] for continuation of your inpatient rehabilitation. Please work with the doctors and medical teams there for ongoing care. Please follow-up wit h your primary care provider as soon as possible for close post-hospitalization continuity of care. Prescriptions: Continued sennosides [senna] 8.6 mg Tablet 8.6 mg PO DAILY RF: 0 amiodarone 200 mg Tablet 200 mg PO Q12 RF: 0 aspirin [Aspir-81] 81 mg Tablet,Delayed Release (Dr/Ec) 81 mg PO DAILY RF: 0 Novolog U-100 Insulin aspart 100 unit/mL Solution 1 sliding scale dose SUBCUT UD RF: 0 pantoprazole 40 mg Tablet,Delayed Release (Dr/Ec) 40 mg PO BID RF: 0 ferrous sulfate 325 mg (65 mg iron) Tablet 325 mg PO DAILY RF: 0 nitroglycerin [Nitrostat] 0.4 mg Tablet, Sublingual 0.4 mg Sublingual UD PRN (Reason: Chest Pain) RF: 0 docusate sodium 100 mg Capsule 100 mg PO BID RF: 0 gabapentin 100 mg Capsule 100 mg PO Q12 RF: 0 metoprolol succinate 25 mg Tablet Extended Release 24 Hr 25 mg PO DAILY RF: 0 Eliquis 5 mg Tablet 5 mg PO BID RF: 0 atorvastatin 40 mg tablet 40 mg PO DAILY RF: 0 acetaminophen [Tylenol Extra Strength] 500 mg Tablet 500 mg PO Q4 PRN (Reason: Pain) RF: 0 metformin 500 mg Tablet 500 mg PO QDD RF: 0 metformin 1,000 mg Tablet 1,000 mg PO QAM RF: 0 Stand-Alone Forms: [facility] Skilled Items Patient informed of condition?: Yes DNR: Yes Discharge Level of Care: Acute rehab Communicable Disease: No Discharge Prognosis: Stable Admission Data Admit Date/Time: 12/10/18 01:53 Attending Provider: Artis Woods Admit Provider: Rohith Lugo Primary Care Provider: Albert Groves Other Providers: Artis Woods Service: Telemetry Resident Activity Tracking Resident Involvement: Resident Care Provided Care Provided: Adult Hospital Medicine
[2018-12-11] MEDS: ONDANSETRON INJ 2 MG/ML 2 ML VIAL IV PRN (23:13)
[2018-12-12] MEDS: ALBUMIN 25% 50 ML IV SCH ×2 (01:12→02:46)
--- NOTE | 2018-12-12 03:54 | Emergency Department Note ---
History of Present Illness General Chief complaint: Hypotension Stated complaint: NAUSEA, HYPOTENSION, HYPOXIA Time Seen by Provider: 12/09/18 20:31 Source: patient, EMS, RN notes reviewed and old records reviewed Mode of arrival: EMS Limitations: language barrier History of Present Illness Maximum Pain Intensity: 10 This is a 78-year-old female who presents emergency department complaining of hypoxia and hypotension. The patient recently came to [facility] after being admitted to [facility] for a stroke. Upon arrival to the emergency department the patient has aphasia as well as right sided weakness that is old. She has no other complaints. She denies any fevers chest pain abdominal pain. Home Medications Home Medications Medication Instructions Recorded Confirmed Type acetaminophen [Tylenol Extra 500 mg PO Q4 PRN 12/09/18 12/09/18 History Strength] amiodarone 200 mg PO Q12 12/09/18 12/09/18 History apixaban [Eliquis] 5 mg PO BID 12/09/18 12/09/18 History aspirin [Aspir-81] 81 mg PO DAILY 12/09/18 12/09/18 History atorvastatin 40 mg PO DAILY 12/09/18 12/09/18 History docusate sodium 100 mg PO BID 12/09/18 12/09/18 History ferrous sulfate 325 mg PO DAILY 12/09/18 12/09/18 History gabapentin 100 mg PO Q12 12/09/18 12/09/18 History insulin aspart U-100 [Novolog 1 sliding scale dose SUBCUT UD 12/09/18 12/09/18 History U-100 Insulin aspart] metformin 1,000 mg PO QAM 12/09/18 12/09/18 History metformin 500 mg PO QDD 12/09/18 12/09/18 History metoprolol succinate 25 mg PO DAILY 12/09/18 12/09/18 History nitroglycerin [Nitrostat] 0.4 mg SUBLINGUAL UD PRN 12/09/18 12/09/18 History pantoprazole 40 mg PO BID 12/09/18 12/09/18 History sennosides [senna] 8.6 mg PO DAILY 12/09/18 12/09/18 History Allergies Allergy/AdvReac Type Severity Reaction Status Date / Time morphine Allergy Unknown Verified 12/09/18 21:35 oxycodone Allergy Unknown Verified 12/09/18 21:35 Past Med/Surg History Medical History Hypercholesteremia Pacemaker Atrial fibrillation Diabetes mellitus History of CVA (cerebrovascular accident) Social History Communication Ability: Impaired Beliefs That Will Affect Care: None marital status: Single Current Living Situation: Rehab current occupational status: retired Other Information That Helps Us Care for You: No Feels Safe at Home: Yes Safety Concerns: Feels Safe At This Time Smoking Status: Unknown if ever smoked Hx Alcohol Use: No Hx Substance Use: No Review of Systems A total of 10 systems reviewed and were otherwise negative Physical Exam Vital Signs Vital Signs - 24 hr 12/11/18 07:02 12/11/18 10:46 12/11/18 12:00 Temperature 36.7 C 36.3 C L Temperature Source Oral Oral Pulse Rate Pulse Rate [Bilateral] 99 H Pulse Rate [Finger] 83 88 Pulse Rhythm [Bilateral] Irregular Pulse Strength [Bilateral] Normal Respiratory Rate 19 19 Blood Pressure [Left Arm] Blood Pressure [Right Arm] 113/71 101/68 Blood Pressure Mean [Left Arm] Blood Pressure Mean [Right Arm] 85 79 Blood Pressure Position [Left Arm] Blood Pressure Position [Right Arm] Lying Sitting Pulse Oximetry 97 90 Oxygen Delivery Method Room Air Room Air 12/11/18 15:30 12/11/18 16:00 12/11/18 19:37 Temperature 36.9 C 36.3 C L Temperature Source Oral Oral Pulse Rate Pulse Rate [Bilateral] 88 Pulse Rate [Finger] 79 101 H Pulse Rhythm [Bilateral] Irregular Pulse Strength [Bilateral] Respiratory Rate 18 18 Blood Pressure [Left Arm] Blood Pressure [Right Arm] 99/60 L 95/65 L Blood Pressure Mean [Left Arm] Blood Pressure Mean [Right Arm] 73 75 Blood Pressure Position [Left Arm] Blood Pressure Position [Right Arm] Lying Lying Pulse Oximetry 95 98 Oxygen Delivery Method Room Air Room Air 12/11/18 21:29 12/11/18 23:04 12/11/18 23:22 Temperature 36.4 C L Temperature Source Oral Pulse Rate 132 H Pulse Rate [Bilateral] Pulse Rate [Finger] 119 H Pulse Rhythm [Bilateral] Pulse Strength [Bilateral] Respiratory Rate 20 Blood Pressure [Left Arm] 106/75 Blood Pressure [Right Arm] 93/57 L Blood Pressure Mean [Left Arm] 85 Blood Pressure Mean [Right Arm] 69 Blood Pressure Position [Left Arm] Lying Blood Pressure Position [Right Arm] Lying Pulse Oximetry 97 Oxygen Delivery Method Room Air 12/12/18 03:41 Temperature 36.7 C Temperature Source Oral Pulse Rate Pulse Rate [Bilateral] Pulse Rate [Finger] 120 H Pulse Rhythm [Bilateral] Pulse Strength [Bilateral] Respiratory Rate 16 Blood Pressure [Left Arm] Blood Pressure [Right Arm] 95/63 L Blood Pressure Mean [Left Arm] Blood Pressure Mean [Right Arm] 73 Blood Pressure Position [Left Arm] Blood Pressure Position [Right Arm] Lying Pulse Oximetry 97 Oxygen Delivery Method Room Air GENERAL: Patient is a healthy-appearing well-nourished HEAD: Normocephalic atraumatic EYES: Ocular movements intact pupils equal and react to light OROPHARYNX mucous membranes are moist no exudates present no erythema or edema present NECK: Supple no nuchal rigidity CHEST: Good equal expansion LUNGS: Clear and equal to auscultation CARDIAC: Normal S1 and S2 ABDOMEN: Soft nontender no guarding BACK: No CVA tenderness EXTREMITIES: No pain upon palpation normal muscle strength in all groups no clubbing cyanosis or edema NEURO: Patient is following commands is answering questions appropriately. Alert and oriented x3 Cranial Nerves 2-12 grossly intact Course Administered Medications Amiodarone HCl (Cordarone) 200 mg PO Q12 [facility] Stop: 01/09/19 08:59 Last Admin: 12/11/18 20:33 Dose: 200 mg Documented by: [id number] Admin: 12/11/18 07:43 Dose: 200 mg Documented by: [id number] Admin: 12/10/18 21:42 Dose: 200 mg Documented by: [id number] Admin: 12/10/18 08:36 Dose: 200 mg Documented by: [id number] Apixaban (Eliquis) 5 mg PO BID [facility] Stop: 01/09/19 08:59 Last Admin: 12/11/18 20:34 Dose: 5 mg Documented by: [id number] Admin: 12/11/18 07:44 Dose: 5 mg Documented by: [id number] Admin: 12/10/18 21:42 Dose: 5 mg Documented by: [id number] Admin: 12/10/18 08:36 Dose: 5 mg Documented by: [id number] Aspirin (Ecotrin Ectab) 81 mg PO DAILY [facility] Stop: 01/09/19 08:59 Last Admin: 12/11/18 07:44 Dose: 81 mg Documented by: [id number] Admin: 12/10/18 08:36 Dose: 81 mg Documented by: [id number] Atorvastatin Calcium (Lipitor) 40 mg PO DAILY [facility] Stop: 01/09/19 08:59 Last Admin: 12/11/18 07:43 Dose: 40 mg Documented by: [id number] Admin: 12/10/18 08:35 Dose: 40 mg Documented by: [id number] Docusate Sodium (Colace) 100 mg PO BID [facility] Stop: 01/09/19 08:59 Last Admin: 12/11/18 20:34 Dose: 100 mg Documented by: [id number] Admin: 12/11/18 07:44 Dose: Not Given Documented by: [id number] Admin: 12/10/18 21:42 Dose: Not Given Documented by: [id number] Admin: 12/10/18 08:36 Dose: 100 mg Documented by: [id number] Ferrous Sulfate (Feosol) 325 mg PO DAILY [facility] Stop: 01/09/19 08:59 Last Admin: 12/11/18 07:43 Dose: 325 mg Documented by: [id number] Admin: 12/10/18 08:35 Dose: 325 mg Documented by: [id number] Gabapentin (Neurontin) 100 mg PO Q12 [facility] Stop: 01/09/19 08:59 Last Admin: 12/11/18 20:34 Dose: 100 mg Documented by: [id number] Admin: 12/11/18 07:44 Dose: 100 mg Documented by: [id number] Admin: 12/10/18 21:42 Dose: 100 mg Documented by: [id number] Admin: 12/10/18 08:35 Dose: 100 mg Documented by: [id number] Insulin Aspart (Novolog Flexpen) 0 units SC ACHS [facility] Stop: 01/09/19 07:29 Last Admin: 12/11/18 20:34 Dose: 7 units Documented by: [id number] Cosigned by: [id number] Admin: 12/11/18 17:13 Dose: 4 units Documented by: [id number] Cosigned by: [id number] Admin: 12/11/18 12:19 Dose: 3 units Documented by: [id number] Cosigned by: [id number] Admin: 12/11/18 07:46 Dose: 3 units Documented by: [id number] Cosigned by: [id number] Admin: 12/10/18 21:45 Dose: 5 units Documented by: [id number] Cosigned by: [id number] Admin: 12/10/18 17:29 Dose: 10 units Documented by: [id number] Cosigned by: [id number] Admin: 12/10/18 12:44 Dose: 3 units Documented by: [id number] Cosigned by: [id number] Admin: 12/10/18 08:36 Dose: 4 units Documented by: [id number] Cosigned by: [id number] Ioversol (Optiray 320 125ml) 113 ml IV ONCE PRN PRN Reason: Interaction Checking Stop: 12/13/18 22:45 Last Admin: 12/09/18 22:46 Dose: 1 ml Documented by: [id number] Metoprolol Succinate (Toprol Xl) 25 mg PO DAILY [facility] Stop: 01/09/19 08:59 Last Admin: 12/11/18 07:43 Dose: 25 mg Documented by: [id number] Admin: 12/10/18 08:36 Dose: 25 mg Documented by: [id number] Ondansetron HCl (Zofran) 4 mg IV Q6H PRN PRN Reason: Nausea Stop: 01/09/19 10:43 Last Admin: 12/11/18 23:13 Dose: 4 mg Documented by: [id number] Admin: 12/10/18 11:00 Dose: 4 mg Documented by: [id number] Pantoprazole Sodium (Protonix) 40 mg PO BID [facility] Stop: 01/09/19 08:59 Last Admin: 12/11/18 20:34 Dose: 40 mg Documented by: [id number] Admin: 12/11/18 07:43 Dose: 40 mg Documented by: [id number] Admin: 12/10/18 21:43 Dose: 40 mg Documented by: [id number] Admin: 12/10/18 08:35 Dose: 40 mg Documented by: [id number] Sennosides (Senokot) 8.6 mg PO DAILY [facility] Stop: 01/09/19 08:59 Last Admin: 12/11/18 07:44 Dose: Not Given Documented by: [id number] Admin: 12/10/18 08:35 Dose: 8.6 mg Documented by: [id number] Discontinued Medications Albuterol (Duoneb) 12 ml NEB ONE ONE Stop: 12/09/18 21:46 Last Admin: 12/09/18 23:43 Dose: Not Given Documented by: [id number] Hydrocortisone Sodium Succinate (Solu-Cortef) 100 mg IV NOW STA Stop: 12/09/18 23:31 Last Admin: 12/09/18 23:51 Dose: 100 mg Documented by: [id number] Hydromorphone HCl (Dilaudid) 0.5 mg IV Q15M PRN PRN Reason: Pain Stop: 12/23/18 22:03 Last Admin: 12/09/18 22:10 Dose: 0.5 mg Documented by: [id number] Sodium Chloride (Nss 1000ml) 1,000 mls @ 999 mls/hr IV .Q1H1M ONE Stop: 12/09/18 22:44 Last Infusion: 12/09/18 23:01 Dose: 0 mls/hr Documented by: [id number] Admin: 12/09/18 21:51 Dose: 999 mls/hr Documented by: [id number] Piperacillin Sod/Tazobactam Sod (Zosyn) 4.5 gm in 120 mls @ 240 mls/hr IV NOW ONE Stop: 12/09/18 23:25 Last Infusion: 12/10/18 00:30 Dose: 0 mls/hr Documented by: [id number] Infusion: 12/10/18 00:01 Dose: 240 mls/hr Documented by: [id number] Infusion: 12/09/18 23:38 Dose: 0 mls/hr Documented by: [id number] Admin: 12/09/18 23:23 Dose: 240 mls/hr Documented by: [id number] Levofloxacin/Dextrose (Levaquin/D5w) 750 mg in 150 mls @ 100 mls/hr IV NOW STA Stop: 12/10/18 00:25 Last Infusion: 12/10/18 02:35 Dose: 0 mls/hr Documented by: [id number] Admin: 12/10/18 00:39 Dose: 100 mls/hr Documented by: [id number] Sodium Chloride (Nss 1000ml) 1,000 mls @ 999 mls/hr IV .Q1H1M ONE Stop: 12/09/18 23:56 Last Infusion: 12/10/18 00:31 Dose: 0 mls/hr Documented by: [id number] Admin: 12/09/18 23:33 Dose: 999 mls/hr Documented by: [id number] Vancomycin HCl 2,000 mg/ (Sodium Chloride) 540 mls @ 200 mls/hr IV NOW ONE Stop: 12/10/18 01:37 Last Infusion: 12/10/18 03:30 Dose: 0 mls/hr Documented by: [id number] Admin: 12/10/18 00:31 Dose: 200 mls/hr Documented by: [id number] Sodium Chloride (Nss 1000ml) 1,000 mls @ 999 mls/hr IV .Q1H1M ONE Stop: 12/10/18 00:19 Last Infusion: 12/10/18 00:43 Dose: 0 mls/hr Documented by: [id number] Admin: 12/09/18 23:33 Dose: 999 mls/hr Documented by: [id number] Sodium Chloride (Nss 1000ml) 1,000 mls @ 100 mls/hr IV .Q10H [facility] Stop: 12/10/18 23:05 Last Infusion: 12/11/18 09:33 Dose: 0 mls/hr Documented by: [id number] Admin: 12/10/18 12:47 Dose: 100 mls/hr Documented by: [id number] Infusion: 12/10/18 12:47 Dose: 100 mls/hr Documented by: [id number] Admin: 12/10/18 03:45 Dose: 100 mls/hr Documented by: [id number] Piperacillin Sod/Tazobactam (Sod 3.375 gm/ Dextrose) 115 mls @ 28.75 mls/hr IV Q8H [facility]; Protocol Stop: 12/17/18 03:59 Last Infusion: 12/11/18 09:32 Dose: 0 mls/hr Documented by: [id number] Admin: 12/11/18 05:21 Dose: 28.8 mls/hr Documented by: [id number] Infusion: 12/11/18 01:38 Dose: 0 mls/hr Documented by: [id number] Admin: 12/10/18 21:38 Dose: 28.8 mls/hr Documented by: [id number] Infusion: 12/10/18 15:05 Dose: 0 mls/hr Documented by: [id number] Admin: 12/10/18 11:05 Dose: 28.8 mls/hr Documented by: [id number] Infusion: 12/10/18 09:15 Dose: 0 mls/hr Documented by: [id number] Admin: 12/10/18 05:11 Dose: 28.8 mls/hr Documented by: [id number] Hydrocortisone Sodium (Succinate 50 mg/ Syringe) 1 mls @ 4 mls/min IV Q8H [facility] Stop: 01/09/19 07:59 Last Admin: 12/10/18 08:35 Dose: 4 mls/min Documented by: [id number] Albumin Human (Albumin 25%) 50 mls @ 50 mls/hr IV Q1H [facility] Stop: 12/12/18 02:59 Last Infusion: 12/12/18 03:33 Dose: 0 mls/hr Documented by: [id number] Admin: 12/12/18 02:46 Dose: 50 mls/hr Documented by: [id number] Infusion: 12/12/18 01:41 Dose: 0 mls/hr Documented by: [id number] Admin: 12/12/18 01:12 Dose: 50 mls/hr Documented by: [id number] Ondansetron HCl (Zofran) 4 mg IV NOW STA Stop: 12/09/18 22:05 Last Admin: 12/09/18 22:10 Dose: 4 mg Documented by: [id number] Ondansetron HCl (Zofran) Confirm Administered Dose 4 mg .ROUTE .STK-MED ONE Stop: 12/10/18 11:00 Last Admin: 12/10/18 11:00 Dose: Not Given Documented by: [id number] Medical Decision Making Medical Records Attestation: I reviewed the patient's medical records. Home Medications Current Medication List: was personally reviewed by me Laboratory Data Attestation: I reviewed the patient's lab results. Result diagrams: 12/11/18 07:08 12/11/18 07:08 Lab Results 12/09/18 12/09/18 12/09/18 Range/Units 21:36 21:46 21:46 WBC 8.86 (4.8-10.8) K/uL RBC 4.21 (4.2-5.4) M/uL Hgb 10.7 L (12.0-16.0) g/dL POC Hgb 11.2 L (12.0-16.0) g/dl Hct 35.1 L (37-47) % POC Hct 33 L (37-47) % MCV 83.4 (80-100) fL MCH 25.4 (25-34) pg MCHC 30.5 L (32-36) g/dL RDW Std Deviation 54.5 H (36.4-46.3) fL RDW Coeff of Josselin 20.1 H (11.5-14.5) % Plt Count 230 (130-400) K/uL MPV 10.4 (7.4-10.4) fL Immature Gran % (Auto) 0.8 % Neut % (Auto) 66.5 % Lymph % (Auto) 21.8 % [place] % (Auto) 8.2 % Eos % (Auto) 2.4 % Baso % (Auto) 0.3 % Immature Gran # (Auto) 0.07 H (0.00-0.02) K/uL Neut # (Auto) 5.89 (1.4-6.5) K/uL Lymph # (Auto) 1.93 (1.2-3.4) K/uL [place] # (Auto) 0.73 H (0.11-0.59) K/uL Eos # (Auto) 0.21 (0-0.5) K/uL Baso # (Auto) 0.03 (0-0.2) K/uL Hypersegmented Neuts 1+ Anisocytosis Present Pappenheimer Bodies 1+ Ovalocytes 1+ PT 11.9 (9.0-12.0) Seconds INR 1.2 H (0.9-1.1) APTT 26.4 (21.0-31.0) Seconds PTT Ratio 1.0 POC Sodium 138 (135-144) mEq/L Sodium (136-145) mmol/L POC Potassium 5.4 H (3.3-5.0) mEq/L Potassium (3.5-5.1) mmol/L POC Chloride 106 (101-112) mEq/L Chloride (98-107) mmol/L Carbon Dioxide (21-32) mmol/L POC Total CO2 23 L (24-31) mEq/l Anion Gap (3-11) POC Anion Gap 16.0 (16-25) mmol/L POC BUN 41 H (7-18) mg/dl BUN (7-18) mg/dl Creatinine (0.6-1.2) mg/dl POC Creatinine 1.9 H (0.6-1.3) mg/dl Est Cr Clr Drug Dosing ml/min Est GFR ( Amer) Est GFR (Non-Af Amer) BUN/Creatinine Ratio (10-20) Glucose (70-99) mg/dl POC Glucose (70-99) POC Glucose (other) 176 H (70-99) mg/dl Lactate (0.4-2.0) mmol/L Calcium (8.5-10.1) mg/dl POC Ioniz Calcium Julia 1.05 L (1.12-1.32) mmol/l Magnesium (1.8-2.4) mg/dl Total Bilirubin (0.2-1) mg/dl AST (15-37) U/L ALT (12-78) U/L Alkaline Phosphatase (45-117) U/L Total Creatine Kinase (26-192) U/L CK-MB (CK-2) (0.5-3.6) ng/ml CK/CKMB % Calc (0-3.0) Troponin I (0-0.045) ng/ml Total Protein (6.4-8.2) gm/dl Albumin (3.4-5.0) gm/dl Globulin (2.5-4.0) gm/dl Albumin/Globulin Ratio (0.9-2) Random Cortisol mcg/dl Cortisol AM Sample (4.3-22.4) mcg/dl Nasal Screen MRSA (PCR) (Negative) Influenza Type A (PCR) (Neg) Influenza Type B (PCR) (Neg) 12/09/18 12/09/18 12/09/18 Range/Units 21:46 21:46 21:55 WBC (4.8-10.8) K/uL RBC (4.2-5.4) M/uL Hgb (12.0-16.0) g/dL POC Hgb (12.0-16.0) g/dl Hct (37-47) % POC Hct (37-47) % MCV (80-100) fL MCH (25-34) pg MCHC (32-36) g/dL RDW Std Deviation (36.4-46.3) fL RDW Coeff of Josselin (11.5-14.5) % Plt Count (130-400) K/uL MPV (7.4-10.4) fL Immature Gran % (Auto) % Neut % (Auto) % Lymph % (Auto) % [place] % (Auto) % Eos % (Auto) % Baso % (Auto) % Immature Gran # (Auto) (0.00-0.02) K/uL Neut # (Auto) (1.4-6.5) K/uL Lymph # (Auto) (1.2-3.4) K/uL [place] # (Auto) (0.11-0.59) K/uL Eos # (Auto) (0-0.5) K/uL Baso # (Auto) (0-0.2) K/uL Hypersegmented Neuts Anisocytosis Pappenheimer Bodies Ovalocytes PT (9.0-12.0) Seconds INR (0.9-1.1) APTT (21.0-31.0) Seconds PTT Ratio POC Sodium (135-144) mEq/L Sodium 137 (136-145) mmol/L POC Potassium (3.3-5.0) mEq/L Potassium 5.6 H (3.5-5.1) mmol/L POC Chloride (101-112) mEq/L Chloride 105 (98-107) mmol/L Carbon Dioxide 22 (21-32) mmol/L POC Total CO2 (24-31) mEq/l Anion Gap 11.0 (3-11) POC Anion Gap (16-25) mmol/L POC BUN (7-18) mg/dl BUN 39 H (7-18) mg/dl Creatinine 1.91 H (0.6-1.2) mg/dl POC Creatinine (0.6-1.3) mg/dl Est Cr Clr Drug Dosing 30.3 ml/min Est GFR ( Amer) 29.0 Est GFR (Non-Af Amer) 25.0 BUN/Creatinine Ratio 20.5 H (10-20) Glucose 175 H (70-99) mg/dl POC Glucose (70-99) POC Glucose (other) (70-99) mg/dl Lactate 3.8 H* (0.4-2.0) mmol/L Calcium 9.0 (8.5-10.1) mg/dl POC Ioniz Calcium Julia (1.12-1.32) mmol/l Magnesium (1.8-2.4) mg/dl Total Bilirubin 0.4 (0.2-1) mg/dl AST 36 (15-37) U/L ALT 57 (12-78) U/L Alkaline Phosphatase 86 (45-117) U/L Total Creatine Kinase 58 (26-192) U/L CK-MB (CK-2) 2.1 (0.5-3.6) ng/ml CK/CKMB % Calc 3.6 H (0-3.0) Troponin I < 0.015 (0-0.045) ng/ml Total Protein 6.5 (6.4-8.2) gm/dl Albumin 2.8 L (3.4-5.0) gm/dl Globulin 3.7 (2.5-4.0) gm/dl Albumin/Globulin Ratio 0.8 L (0.9-2) Random Cortisol mcg/dl Cortisol AM Sample (4.3-22.4) mcg/dl Nasal Screen MRSA (PCR) (Negative) Influenza Type A (PCR) Neg for Influ A (Neg) Influenza Type B (PCR) Neg for Influ B (Neg) 12/09/18 12/10/18 12/10/18 Range/Units 23:38 03:34 03:38 WBC (4.8-10.8) K/uL RBC (4.2-5.4) M/uL Hgb (12.0-16.0) g/dL POC Hgb (12.0-16.0) g/dl Hct (37-47) % POC Hct (37-47) % MCV (80-100) fL MCH (25-34) pg MCHC (32-36) g/dL RDW Std Deviation (36.4-46.3) fL RDW Coeff of Josselin (11.5-14.5) % Plt Count (130-400) K/uL MPV (7.4-10.4) fL Immature Gran % (Auto) % Neut % (Auto) % Lymph % (Auto) % [place] % (Auto) % Eos % (Auto) % Baso % (Auto) % Immature Gran # (Auto) (0.00-0.02) K/uL Neut # (Auto) (1.4-6.5) K/uL Lymph # (Auto) (1.2-3.4) K/uL [place] # (Auto) (0.11-0.59) K/uL Eos # (Auto) (0-0.5) K/uL Baso # (Auto) (0-0.2) K/uL Hypersegmented Neuts Anisocytosis Pappenheimer Bodies Ovalocytes PT (9.0-12.0) Seconds INR (0.9-1.1) APTT (21.0-31.0) Seconds PTT Ratio POC Sodium (135-144) mEq/L Sodium (136-145) mmol/L POC Potassium (3.3-5.0) mEq/L Potassium (3.5-5.1) mmol/L POC Chloride (101-112) mEq/L Chloride (98-107) mmol/L Carbon Dioxide (21-32) mmol/L POC Total CO2 (24-31) mEq/l Anion Gap (3-11) POC Anion Gap (16-25) mmol/L POC BUN (7-18) mg/dl BUN (7-18) mg/dl Creatinine (0.6-1.2) mg/dl POC Creatinine (0.6-1.3) mg/dl Est Cr Clr Drug Dosing ml/min Est GFR ( Amer) Est GFR (Non-Af Amer) BUN/Creatinine Ratio (10-20) Glucose (70-99) mg/dl POC Glucose (70-99) POC Glucose (other) (70-99) mg/dl Lactate 2.1 H* (0.4-2.0) mmol/L Calcium (8.5-10.1) mg/dl POC Ioniz Calcium Julia (1.12-1.32) mmol/l Magnesium (1.8-2.4) mg/dl Total Bilirubin (0.2-1) mg/dl AST (15-37) U/L ALT (12-78) U/L Alkaline Phosphatase (45-117) U/L Total Creatine Kinase (26-192) U/L CK-MB (CK-2) (0.5-3.6) ng/ml CK/CKMB % Calc (0-3.0) Troponin I (0-0.045) ng/ml Total Protein (6.4-8.2) gm/dl Albumin (3.4-5.0) gm/dl Globulin (2.5-4.0) gm/dl Albumin/Globulin Ratio (0.9-2) Random Cortisol 66.11 mcg/dl Cortisol AM Sample (4.3-22.4) mcg/dl Nasal Screen MRSA (PCR) Negative (Negative) Influenza Type A (PCR) (Neg) Influenza Type B (PCR) (Neg) 12/10/18 12/10/18 12/10/18 Range/Units 06:19 06:19 07:15 WBC 6.51 (4.8-10.8) K/uL RBC 3.73 L (4.2-5.4) M/uL Hgb 9.5 L (12.0-16.0) g/dL POC Hgb (12.0-16.0) g/dl Hct 31.1 L (37-47) % POC Hct (37-47) % MCV 83.4 (80-100) fL MCH 25.5 (25-34) pg MCHC 30.5 L (32-36) g/dL RDW Std Deviation 54.7 H (36.4-46.3) fL RDW Coeff of Josselin 20.0 H (11.5-14.5) % Plt Count 191 (130-400) K/uL MPV 10.0 (7.4-10.4) fL Immature Gran % (Auto) 0.6 % Neut % (Auto) 87.5 % Lymph % (Auto) 9.8 % [place] % (Auto) 1.7 % Eos % (Auto) 0.2 % Baso % (Auto) 0.2 % Immature Gran # (Auto) 0.04 H (0.00-0.02) K/uL Neut # (Auto) 5.70 (1.4-6.5) K/uL Lymph # (Auto) 0.64 L (1.2-3.4) K/uL [place] # (Auto) 0.11 (0.11-0.59) K/uL Eos # (Auto) 0.01 (0-0.5) K/uL Baso # (Auto) 0.01 (0-0.2) K/uL Hypersegmented Neuts Anisocytosis Present Pappenheimer Bodies Ovalocytes PT (9.0-12.0) Seconds INR (0.9-1.1) APTT (21.0-31.0) Seconds PTT Ratio POC Sodium (135-144) mEq/L Sodium 140 (136-145) mmol/L POC Potassium (3.3-5.0) mEq/L Potassium 5.5 H (3.5-5.1) mmol/L POC Chloride (101-112) mEq/L Chloride 109 H (98-107) mmol/L Carbon Dioxide 22 (21-32) mmol/L POC Total CO2 (24-31) mEq/l Anion Gap 9.0 (3-11) POC Anion Gap (16-25) mmol/L POC BUN (7-18) mg/dl BUN 34 H (7-18) mg/dl Creatinine 1.51 H D (0.6-1.2) mg/dl POC Creatinine (0.6-1.3) mg/dl Est Cr Clr Drug Dosing 37.8 ml/min Est GFR ( Amer) 38.5 Est GFR (Non-Af Amer) 33.2 BUN/Creatinine Ratio 22.2 H (10-20) Glucose 218 H (70-99) mg/dl POC Glucose 236 H (70-99) POC Glucose (other) (70-99) mg/dl Lactate (0.4-2.0) mmol/L Calcium 7.7 L (8.5-10.1) mg/dl POC Ioniz Calcium Julia (1.12-1.32) mmol/l Magnesium (1.8-2.4) mg/dl Total Bilirubin (0.2-1) mg/dl AST (15-37) U/L ALT (12-78) U/L Alkaline Phosphatase (45-117) U/L Total Creatine Kinase (26-192) U/L CK-MB (CK-2) (0.5-3.6) ng/ml CK/CKMB % Calc (0-3.0) Troponin I (0-0.045) ng/ml Total Protein (6.4-8.2) gm/dl Albumin (3.4-5.0) gm/dl Globulin (2.5-4.0) gm/dl Albumin/Globulin Ratio (0.9-2) Random Cortisol mcg/dl Cortisol AM Sample (4.3-22.4) mcg/dl Nasal Screen MRSA (PCR) (Negative) Influenza Type A (PCR) (Neg) Influenza Type B (PCR) (Neg) 12/10/18 12/10/18 12/10/18 Range/Units 11:11 16:25 20:04 WBC (4.8-10.8) K/uL RBC (4.2-5.4) M/uL Hgb (12.0-16.0) g/dL POC Hgb (12.0-16.0) g/dl Hct (37-47) % POC Hct (37-47) % MCV (80-100) fL MCH (25-34) pg MCHC (32-36) g/dL RDW Std Deviation (36.4-46.3) fL RDW Coeff of Josselin (11.5-14.5) % Plt Count (130-400) K/uL MPV (7.4-10.4) fL Immature Gran % (Auto) % Neut % (Auto) % Lymph % (Auto) % [place] % (Auto) % Eos % (Auto) % Baso % (Auto) % Immature Gran # (Auto) (0.00-0.02) K/uL Neut # (Auto) (1.4-6.5) K/uL Lymph # (Auto) (1.2-3.4) K/uL [place] # (Auto) (0.11-0.59) K/uL Eos # (Auto) (0-0.5) K/uL Baso # (Auto) (0-0.2) K/uL Hypersegmented Neuts Anisocytosis Pappenheimer Bodies Ovalocytes PT (9.0-12.0) Seconds INR (0.9-1.1) APTT (21.0-31.0) Seconds PTT Ratio POC Sodium (135-144) mEq/L Sodium (136-145) mmol/L POC Potassium (3.3-5.0) mEq/L Potassium (3.5-5.1) mmol/L POC Chloride (101-112) mEq/L Chloride (98-107) mmol/L Carbon Dioxide (21-32) mmol/L POC Total CO2 (24-31) mEq/l Anion Gap (3-11) POC Anion Gap (16-25) mmol/L POC BUN (7-18) mg/dl BUN (7-18) mg/dl Creatinine (0.6-1.2) mg/dl POC Creatinine (0.6-1.3) mg/dl Est Cr Clr Drug Dosing ml/min Est GFR ( Amer) Est GFR (Non-Af Amer) BUN/Creatinine Ratio (10-20) Glucose (70-99) mg/dl POC Glucose 193 H 315 H 244 H (70-99) POC Glucose (other) (70-99) mg/dl Lactate (0.4-2.0) mmol/L Calcium (8.5-10.1) mg/dl POC Ioniz Calcium Julia (1.12-1.32) mmol/l Magnesium (1.8-2.4) mg/dl Total Bilirubin (0.2-1) mg/dl AST (15-37) U/L ALT (12-78) U/L Alkaline Phosphatase (45-117) U/L Total Creatine Kinase (26-192) U/L CK-MB (CK-2) (0.5-3.6) ng/ml CK/CKMB % Calc (0-3.0) Troponin I (0-0.045) ng/ml Total Protein (6.4-8.2) gm/dl Albumin (3.4-5.0) gm/dl Globulin (2.5-4.0) gm/dl Albumin/Globulin Ratio (0.9-2) Random Cortisol mcg/dl Cortisol AM Sample (4.3-22.4) mcg/dl Nasal Screen MRSA (PCR) (Negative) Influenza Type A (PCR) (Neg) Influenza Type B (PCR) (Neg) 12/11/18 12/11/18 12/11/18 Range/Units 07:08 07:08 07:08 WBC 7.44 (4.8-10.8) K/uL RBC 3.49 L (4.2-5.4) M/uL Hgb 8.9 L (12.0-16.0) g/dL POC Hgb (12.0-16.0) g/dl Hct 29.2 L (37-47) % POC Hct (37-47) % MCV 83.7 (80-100) fL MCH 25.5 (25-34) pg MCHC 30.5 L (32-36) g/dL RDW Std Deviation 55.9 H (36.4-46.3) fL RDW Coeff of Josselin 20.6 H (11.5-14.5) % Plt Count 188 (130-400) K/uL MPV 9.9 (7.4-10.4) fL Immature Gran % (Auto) 0.4 % Neut % (Auto) 64.0 % Lymph % (Auto) 24.9 % [place] % (Auto) 8.5 % Eos % (Auto) 1.7 % Baso % (Auto) 0.5 % Immature Gran # (Auto) 0.03 H (0.00-0.02) K/uL Neut # (Auto) 4.76 (1.4-6.5) K/uL Lymph # (Auto) 1.85 (1.2-3.4) K/uL [place] # (Auto) 0.63 H (0.11-0.59) K/uL Eos # (Auto) 0.13 (0-0.5) K/uL Baso # (Auto) 0.04 (0-0.2) K/uL Hypersegmented Neuts Anisocytosis Present Pappenheimer Bodies Ovalocytes PT (9.0-12.0) Seconds INR (0.9-1.1) APTT (21.0-31.0) Seconds PTT Ratio POC Sodium (135-144) mEq/L Sodium 142 (136-145) mmol/L POC Potassium (3.3-5.0) mEq/L Potassium 4.2 D (3.5-5.1) mmol/L POC Chloride (101-112) mEq/L Chloride 113 H (98-107) mmol/L Carbon Dioxide 22 (21-32) mmol/L POC Total CO2 (24-31) mEq/l Anion Gap 7.0 (3-11) POC Anion Gap (16-25) mmol/L POC BUN (7-18) mg/dl BUN 31 H (7-18) mg/dl Creatinine 1.54 H (0.6-1.2) mg/dl POC Creatinine (0.6-1.3) mg/dl Est Cr Clr Drug Dosing 37.0 ml/min Est GFR ( Amer) 37.6 Est GFR (Non-Af Amer) 32.4 BUN/Creatinine Ratio 20.2 H (10-20) Glucose 137 H (70-99) mg/dl POC Glucose (70-99) POC Glucose (other) (70-99) mg/dl Lactate (0.4-2.0) mmol/L Calcium 7.6 L (8.5-10.1) mg/dl POC Ioniz Calcium Julia (1.12-1.32) mmol/l Magnesium 1.9 (1.8-2.4) mg/dl Total Bilirubin (0.2-1) mg/dl AST (15-37) U/L ALT (12-78) U/L Alkaline Phosphatase (45-117) U/L Total Creatine Kinase (26-192) U/L CK-MB (CK-2) (0.5-3.6) ng/ml CK/CKMB % Calc (0-3.0) Troponin I (0-0.045) ng/ml Total Protein (6.4-8.2) gm/dl Albumin (3.4-5.0) gm/dl Globulin (2.5-4.0) gm/dl Albumin/Globulin Ratio (0.9-2) Random Cortisol mcg/dl Cortisol AM Sample 10.22 (4.3-22.4) mcg/dl Nasal Screen MRSA (PCR) (Negative) Influenza Type A (PCR) (Neg) Influenza Type B (PCR) (Neg) 12/11/18 12/11/18 12/11/18 Range/Units 07:08 07:18 11:16 WBC (4.8-10.8) K/uL RBC (4.2-5.4) M/uL Hgb (12.0-16.0) g/dL POC Hgb (12.0-16.0) g/dl Hct (37-47) % POC Hct (37-47) % MCV (80-100) fL MCH (25-34) pg MCHC (32-36) g/dL RDW Std Deviation (36.4-46.3) fL RDW Coeff of Josselin (11.5-14.5) % Plt Count (130-400) K/uL MPV (7.4-10.4) fL Immature Gran % (Auto) % Neut % (Auto) % Lymph % (Auto) % [place] % (Auto) % Eos % (Auto) % Baso % (Auto) % Immature Gran # (Auto) (0.00-0.02) K/uL Neut # (Auto) (1.4-6.5) K/uL Lymph # (Auto) (1.2-3.4) K/uL [place] # (Auto) (0.11-0.59) K/uL Eos # (Auto) (0-0.5) K/uL Baso # (Auto) (0-0.2) K/uL Hypersegmented Neuts Anisocytosis Pappenheimer Bodies Ovalocytes PT (9.0-12.0) Seconds INR (0.9-1.1) APTT (21.0-31.0) Seconds PTT Ratio POC Sodium (135-144) mEq/L Sodium (136-145) mmol/L POC Potassium (3.3-5.0) mEq/L Potassium (3.5-5.1) mmol/L POC Chloride (101-112) mEq/L Chloride (98-107) mmol/L Carbon Dioxide (21-32) mmol/L POC Total CO2 (24-31) mEq/l Anion Gap (3-11) POC Anion Gap (16-25) mmol/L POC BUN (7-18) mg/dl BUN (7-18) mg/dl Creatinine (0.6-1.2) mg/dl POC Creatinine (0.6-1.3) mg/dl Est Cr Clr Drug Dosing ml/min Est GFR ( Amer) Est GFR (Non-Af Amer) BUN/Creatinine Ratio (10-20) Glucose (70-99) mg/dl POC Glucose 149 H 172 H (70-99) POC Glucose (other) (70-99) mg/dl Lactate 1.0 (0.4-2.0) mmol/L Calcium (8.5-10.1) mg/dl POC Ioniz Calcium Julia (1.12-1.32) mmol/l Magnesium (1.8-2.4) mg/dl Total Bilirubin (0.2-1) mg/dl AST (15-37) U/L ALT (12-78) U/L Alkaline Phosphatase (45-117) U/L Total Creatine Kinase (26-192) U/L CK-MB (CK-2) (0.5-3.6) ng/ml CK/CKMB % Calc (0-3.0) Troponin I (0-0.045) ng/ml Total Protein (6.4-8.2) gm/dl Albumin (3.4-5.0) gm/dl Globulin (2.5-4.0) gm/dl Albumin/Globulin Ratio (0.9-2) Random Cortisol mcg/dl Cortisol AM Sample (4.3-22.4) mcg/dl Nasal Screen MRSA (PCR) (Negative) Influenza Type A (PCR) (Neg) Influenza Type B (PCR) (Neg) 12/11/18 12/11/18 Range/Units 16:18 20:33 WBC (4.8-10.8) K/uL RBC (4.2-5.4) M/uL Hgb (12.0-16.0) g/dL POC Hgb (12.0-16.0) g/dl Hct (37-47) % POC Hct (37-47) % MCV (80-100) fL MCH (25-34) pg MCHC (32-36) g/dL RDW Std Deviation (36.4-46.3) fL RDW Coeff of Josselin (11.5-14.5) % Plt Count (130-400) K/uL MPV (7.4-10.4) fL Immature Gran % (Auto) % Neut % (Auto) % Lymph % (Auto) % [place] % (Auto) % Eos % (Auto) % Baso % (Auto) % Immature Gran # (Auto) (0.00-0.02) K/uL Neut # (Auto) (1.4-6.5) K/uL Lymph # (Auto) (1.2-3.4) K/uL [place] # (Auto) (0.11-0.59) K/uL Eos # (Auto) (0-0.5) K/uL Baso # (Auto) (0-0.2) K/uL Hypersegmented Neuts Anisocytosis Pappenheimer Bodies Ovalocytes PT (9.0-12.0) Seconds INR (0.9-1.1) APTT (21.0-31.0) Seconds PTT Ratio POC Sodium (135-144) mEq/L Sodium (136-145) mmol/L POC Potassium (3.3-5.0) mEq/L Potassium (3.5-5.1) mmol/L POC Chloride (101-112) mEq/L Chloride (98-107) mmol/L Carbon Dioxide (21-32) mmol/L POC Total CO2 (24-31) mEq/l Anion Gap (3-11) POC Anion Gap (16-25) mmol/L POC BUN (7-18) mg/dl BUN (7-18) mg/dl Creatinine (0.6-1.2) mg/dl POC Creatinine (0.6-1.3) mg/dl Est Cr Clr Drug Dosing ml/min Est GFR ( Amer) Est GFR (Non-Af Amer) BUN/Creatinine Ratio (10-20) Glucose (70-99) mg/dl POC Glucose 238 H 285 H (70-99) POC Glucose (other) (70-99) mg/dl Lactate (0.4-2.0) mmol/L Calcium (8.5-10.1) mg/dl POC Ioniz Calcium Julia (1.12-1.32) mmol/l Magnesium (1.8-2.4) mg/dl Total Bilirubin (0.2-1) mg/dl AST (15-37) U/L ALT (12-78) U/L Alkaline Phosphatase (45-117) U/L Total Creatine Kinase (26-192) U/L CK-MB (CK-2) (0.5-3.6) ng/ml CK/CKMB % Calc (0-3.0) Troponin I (0-0.045) ng/ml Total Protein (6.4-8.2) gm/dl Albumin (3.4-5.0) gm/dl Globulin (2.5-4.0) gm/dl Albumin/Globulin Ratio (0.9-2) Random Cortisol mcg/dl Cortisol AM Sample (4.3-22.4) mcg/dl Nasal Screen MRSA (PCR) (Negative) Influenza Type A (PCR) (Neg) Influenza Type B (PCR) (Neg) Imaging Data Radiologist's Impression: [place], [place] [phone] CT Scan Report Patient: ANA CEBALLOS Date: 12/09/18 MR#: [id number]: [facility] Acct ID:[id number] Zip: [place] [address] Age: 78Location: ED Sex: F Room/Bed: Att Phy: Diagnosis: NAUSEA, HYPOTENSION, HYPOXIA Cass Phy: PCP,NO Service Date: 12/09/18 Fam Phy: Interpreting Phy: Israel Solis Admit Phy: Ordering Phy: Elvin Rock MD cc: ~ CT angio chest PE protocol CT DOSE: 697.32 mGy.cm HISTORY: 78 years-old Female with PE. Acute shortness of breath TECHNIQUE: Multiple CTA images of the chest were obtained after the intravenous administration of 113 ml Optiray 320. Coronal and sagittal MIPS were obtained from the axial data set and were submitted for review. All measurements were obtained according to NASCET criteria. A dose lowering technique was utilized adhering to the principles of ALARA. COMPARISON: Chest radiograph of same day FINDINGS: Study is limited with a large portion of the contrast bolus infiltrating into the subcutaneous left upper chest wall. CTA: Mild multichamber cardiac enlargement with small pericardial effusion. Left subclavian pacer is noted with leads overlying the right atrium and right ventricle. Aortic and mitral annular calcifications are noted in addition to coronary arterial calcifications. No thoracic aortic aneurysm or dissection. Patency of the imaged great vessels. Tortuosity of the descending thoracic aorta. Pulmonary arterial tree is opacified to the level of the lobar branches and demonstrates no focal filling defects to suggest pulmonary thromboembolic disease. CT CHEST: No dominant thyroid nodule or adenopathy by CT size criteria. No pneumothorax or pleural effusion. Mild subsegmental bibasilar atelectasis. No focal airspace consolidation to suggest ammonia. 3 mm solid nodule of the right middle lobe, image 82 series 4. Additionally, there are a few benign-appearing areas of subpl eural nodularity measuring up to 3 mm the upper lung zones suggestive of benign pleural parenchymal scarring. 2 mm solid nodule of the right middle lobe on image 111 series 4. No suspicious nodules or masses. Central airways appear patent. No acute process of the imaged upper abdomen. Postoperative changes of the stomach. Mild wall thickening noted about the mid and distal esophagus. Spinal stimulator device is noted in the posterior lateral tissues about the midthoracic spine. Postoperative changes of the right shoulder. Multiple healed remote right-sided rib fractures. Demineralized appearance of the bones. IMPRESSION: 1. Limited study with a large portion of the contrast bolus infiltrated into the subcutaneous tissues about the left chest wall. 2. No evidence of central pulmonary thromboembolic disease. 3. Cardiomegaly with small pericardial effusion. 4. Multiple likely benign scattered solid pulmonary nodules measure up to 3 mm. Please refer to below summary of Fleischner criteria recommendations for follow- up of incidental CT nodules (Tru Thomson, Guidelines for management of small pulmonary nodules detected on CT scans: A statement from the Fleischner Society, Radiology 237: [phone].) SOLID NODULES Multiple nodules size: <6 mm * Low risk patients: no routine follow-up * high risk patients: optional CT at 12 months Note: newly detected indeterminate nodule in persons 35 years of age or older. * Low risk patients: minimal or absent history of smoking and/or other known risk factors * high risk patients: history of smoking or of other known risk factors (e.g. first degree relative with lung cancer, or exposure to asbestos, radon, uranium) * if a nodule up to 8 mm is partly solid or is ground glass further follow-up is required after 24 months to exclude possible slow growing adenocarcinoma (DIANA) The above report was generated using voice recognition software. It may contain grammatical, syntax or spelling errors. Blood Pressure Blood Pressure Findings: Low blood pressure MDM Narrative This is a 78-year-old female who arrives to the emergency department hypotensive as well as hypoxic. Due to these findings the patient was sent for a CAT scan of the chest. This did not show any evidence of PE. The patient remained hypotensive in the emergency department despite receiving 3 L of fluid. Based on this finding the patient was then given cortisol. I did discuss her case with the hospitalist service who agreed to admit the patient. Patient was in agreement with the treatment plan. Impression & Plan Hypoxia, Hypotension Discharge Plan Visit Data *Final* Discharge Date/Time: 12/10/18 02:27 Chief Complaint: Hypotension Stated Complaint: NAUSEA, HYPOTENSION, HYPOXIA ED Provider: Elvin Rock Discharge Problem: Hypoxia, Hypotension Patient Disposition: Admitted As Inpatient Discharge Instructions Interventions: ED Discharge Assessment Last Done: 12/10/18 02:27
[2018-12-12] MEDS ORDERED: SODIUM CHLORIDE 0.9% 500 ML IV SCH (05:00)
[2018-12-12 06:05] LABS: Basophils # (auto) 0.04 K/uL (0-0.2); Basophils % (auto) 0.3 %; Eosinophils # (auto) 0.02 K/uL (0-0.5); Eosinophils % (auto) 0.2 %; Hemoglobin 9.8 g/dL (12.0-16.0); Immature Granulocytes # (auto) 0.13 K/uL (0.00-0.02); Immature Granulocytes % (auto) 1.1 %; Lymphocytes # (auto) 1.74 K/uL (1.2-3.4); Lymphocytes % (auto) 14.5 %; Mean Corpuscular Hgb Conc 30.6 g/dL (32-36); Mean Platelet Volume 10.6 fL (7.4-10.4); Monocytes # (auto) 1.32 K/uL (0.11-0.59); Neutrophils # (auto) 8.79 K/uL (1.4-6.5); Neutrophils % (auto) 72.9 %; Nucleated RBC # (auto) 0.02 K/uL (0-0); Nucleated RBC % (auto) 0.1 %; Platelet Count 215 K/uL (130-400); RDW Coefficient of Variation 21.4 % (11.5-14.5); RDW Standard Deviation 60.3 fL (36.4-46.3); Red Blood Count 3.81 M/uL (4.2-5.4); White Blood Count 12.04 K/uL (4.8-10.8)
[2018-12-12 06:42] LABS: Anisocytosis Present; Giant Platelets 1+; Hypochromasia Present; Ovalocytes 1+
[2018-12-12 06:45] LABS: Calcium 7.9 mg/dl (8.5-10.1); Creatinine Clr Calc Pharmacy 26.7 ml/min; Est GFR (African American) 25.4; Est GFR (Non-African American) 21.9; Magnesium 1.9 mg/dl (1.8-2.4); Potassium 5.2 mmol/L (3.5-5.1)
[2018-12-12] MEDS: DOCUSATE SODIUM 100 MG CAP PO SCH ×2 (07:54→20:48)
[2018-12-12] MEDS: ATORVASTATIN 40 MG TAB PO SCH (07:54)
[2018-12-12] MEDS: AMIODARONE 200 MG TAB PO SCH ×2 (07:54→20:48)
[2018-12-12] MEDS: APIXABAN 5 MG TABLET PO SCH ×2 (07:55→20:46)
[2018-12-12] MEDS: PANTOprazole 40 MG TAB PO SCH ×2 (07:55→20:48)
[2018-12-12] MEDS: FERROUS SULFATE 325 MG TAB PO SCH (07:55)
[2018-12-12] MEDS: GABAPENTIN 100 MG CAP PO SCH ×2 (07:55→20:47)
[2018-12-12] MEDS: METOPROLOL SUCC 25MG EXT REL TAB PO SCH (07:55)
[2018-12-12] MEDS: ASPIRIN 81 MG ECTAB PO SCH (07:55)
[2018-12-12] MEDS: INSULIN ASPART 100 UNITS/ML 3 ML PEN SC SCH ×5 (07:57→22:34)
[2018-12-12] MEDS: SENNA 8.6 MG TAB PO SCH (07:59)
[2018-12-12] MEDS ORDERED: SODIUM CHLORIDE 0.9% 1000ML 500 ML IV ONE (09:00)
[2018-12-12] MEDS: ONDANSETRON INJ 2 MG/ML 2 ML VIAL IV PRN (10:44)
--- NOTE | 2018-12-12 13:06 | Family Medicine Progress Note ---
Date of Service December 12, 2018 Assessment & Plan (1) Hypotension: 78-year-old female was admitted (transferred from [facility]) on 10 December 2018 for hypoxia, cyanosis, and increased fatigue. Hypotension: Per [facility] records, initial BP was 94/66. Comparison on 26Feb was 118/66. Initial cause thought to be multifactorial to include dehydration and adrenal insufficiency. Afebrile, no leukocytosis, and lactate 3.8 (now resolved). Given IV fluids and hydrocortisone. 03Mar BCx NGTD. Started empirically on Zosyn and vancomycin as well as scheduled hydrocortisone. An infectious source seems unlikely at this point causing this relative mild hypotension. 04Mar TTE noted EF >70%, hyperdynamic LV, mild concentric LVH, as well as mild MR and TR. Have since stopped the vancomycin, hydrocortisone, and Zosyn. Normal AM cortisol. Hypoxia: Per report, OSH was unable to obtain an SpO2 level initially and then was 90% on 4 L NC oxygen. Here, no hypoxia noted on room air. Monitoring. Atrial fibrillation and tachybradycardia syndrome s/p pacemaker: Noted to have some tachycardia overnight (5-6Mar) with concurrent increase in creatinine. Thought to be a bit volume depleted, so given IVF boluses and maintenance. Continue home metoprolol, amiodarone, Eliquis. Decreased peripheral pulses: On admit, BLE were cool to touch with diminished pulses. No report of PVD and PMH. 04Mar u/s arterial duplex of the BLE noted no hemodynamically significant stenosis (see full report). Presently has good pulses, is warm to touch, and remains asymptomatic. Monitoring. Elevated creatinine: Initial Cr 1.91, improved, then worsened. No recent creatinine comparisons available. Still thought to be volume-related. Giving fluids, rechecking. Hyperkalemia: Initial K 5.6, resolved, then returned to 5.2. Normal Na. EKG is afib with PVC. Is on the secured entrance monitor. Anemia: Admit hemoglobin 10.7, stabilized around 9s. Is on iron. Monitoring. Lung nodules: Per CTA chest, "multiple likely benign scattered solid pulmonary nodules measure up to 3 mm". Recommend follow-up as outpatient. 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 No new neuro deficits no jennifer. On aspirin. - Hypertension, CAD s/p stent placement: On metoprolol succinate 25 mg PO daily. - Hyperlipidemia: Continue home atorvastatin. - Type II DM: At home is on metformin and NovoLog. Here is on sliding scale insulin. - GERD: Continue home pantoprazole. - Restless leg syndrome: Is on gabapentin for this. - Depression. Code status: DO NOT RESUSCITATE. Diet: Heart healthy, DM 2, minced and moist. DVT prophy: On home Eliquis. PT/OT: Deferred on admit (with plans to return to inpatient rehab). Disbo: Admitted to PCU telemetry. Will likely to return to [facility] on discharge. (2) Hypoxia: (3) Decreased pulses in feet: (4) Elevated serum creatinine: (5) Hyperkalemia: (6) Anemia: (7) Lung nodules: (8) History of CVA (cerebrovascular accident): (9) Hypertension: (10) Hypercholesteremia: (11) Diabetes mellitus: (12) Atrial fibrillation: (13) Tachycardia-bradycardia syndrome: (14) GERD (gastroesophageal reflux disease): (15) Restless leg syndrome: (16) Depression: Supervising Physician Co-Signing Physician Notes Patient seen and examined with the resident. Agree with history, physical exam, assessment and plan with the following updates/corrections: 78yo F at [facility] for CVA who presented with hypoxemia and mild hypotension. This morning, she had episode of worse aphasia, 1) Hypoxemia - Unclear etiology though possibly a mis-read as the patient has had good O2 sat on room air while inpatient. Will continue to monitor. 2) Hypotension - BP has been stable at 100-110/60-70. Stopped Zosyn on 12/11 as she had no real focal infection complaints/issues. 3) Acute kidney failure on CKD, unknown stage - Baseline Cr unclear, but down to 1.5 from 1.9 on admission after IV hydration. Cr back up to 2.1 on 12/12 when fluids were stopped. Will get further IV fluids and DI labs in the morning. Subjective Found patient resting comfortably. She did have some very mild expressive aphasia, little worse than yesterday, but still understandable. She remains worried that she is going to lose her inpatient bed at [facility]. Otherwise she denies any pain, difficulty breathing, or other acute concerns. Physical Exam Vital Signs (Past 24 Hours): Last Vital Signs Temp 36.7 C 12/12/18 10:53 Pulse 121 H 12/12/18 12:00 Resp 18 12/12/18 10:53 BP 95/57 L 12/12/18 10:53 Pulse Ox 98 12/12/18 10:53 Physical Exam: General Appearance: Awake, alert & oriented, comfortable in general, NAD. CV: +S1S2 RRR, no murmur. Pulm: Clear to auscultation throughout. Abdomen: +BS, soft, non-tender, non-distended. Extremities: Trace pedal edema bilaterally. No calf tenderness. Moving all extremities naturally and easily. Distal extremities are warm with good cap refill. Neuro: She is moving her bilateral upper extremities naturally without obvious deficit. She was noted to have a bit of worsening of her expressive aphasia this morning, but not as severe as at time of admission. Results & Data Laboratory Results Laboratory Results WBC 12.04 K/uL (4.8-10.8) H 12/12/18 05:32 RBC 3.81 M/uL (4.2-5.4) L 12/12/18 05:32 Hgb 9.8 g/dL (12.0-16.0) L 12/12/18 05:32 POC Hgb 11.2 g/dl (12.0-16.0) L 12/09/18 21:36 Hct 32.0 % (37-47) L 12/12/18 05:32 POC Hct 33 % (37-47) L 12/09/18 21:36 MCV 84.0 fL (80-100) 12/12/18 05:32 MCH 25.7 pg (25-34) 12/12/18 05:32 MCHC 30.6 g/dL (32-36) L 12/12/18 05:32 RDW Std Deviation 60.3 fL (36.4-46.3) H 12/12/18 05:32 RDW Coeff of Josselin 21.4 % (11.5-14.5) H 12/12/18 05:32 Plt Count 215 K/uL (130-400) 12/12/18 05:32 MPV 10.6 fL (7.4-10.4) H 12/12/18 05:32 Immature Gran % (Auto) 1.1 % 12/12/18 05:32 Neut % (Auto) 72.9 % 12/12/18 05:32 Lymph % (Auto) 14.5 % 12/12/18 05:32 [place] % (Auto) 11.0 % 12/12/18 05:32 Eos % (Auto) 0.2 % 12/12/18 05:32 Baso % (Auto) 0.3 % 12/12/18 05:32 Immature Gran # (Auto) 0.13 K/uL (0.00-0.02) H 12/12/18 05:32 Neut # (Auto) 8.79 K/uL (1.4-6.5) H 12/12/18 05:32 Lymph # (Auto) 1.74 K/uL (1.2-3.4) 12/12/18 05:32 [place] # (Auto) 1.32 K/uL (0.11-0.59) H 12/12/18 05:32 Eos # (Auto) 0.02 K/uL (0-0.5) 12/12/18 05:32 Baso # (Auto) 0.04 K/uL (0-0.2) 12/12/18 05:32 Absolute Nucleated RBC 0.02 K/uL (0-0) H 12/12/18 05:32 Nucleated RBC % (auto) 0.1 % 12/12/18 05:32 Hypersegmented Neuts 1+ 12/09/18 21:46 Giant Platelets 1+ 12/12/18 05:32 Hypochromasia Present 12/12/18 05:32 Anisocytosis Present 12/12/18 05:32 Pappenheimer Bodies 1+ 12/09/18 21:46 Ovalocytes 1+ 12/12/18 05:32 PT 11.9 Seconds (9.0-12.0) 12/09/18 21:46 INR 1.2 (0.9-1.1) H 12/09/18 21:46 APTT 26.4 Seconds (21.0-31.0) 12/09/18 21:46 PTT Ratio 1.0 12/09/18 21:46 POC Sodium 138 mEq/L (135-144) 12/09/18 21:36 Sodium 138 mmol/L (136-145) 12/12/18 05:32 POC Potassium 5.4 mEq/L (3.3-5.0) H 12/09/18 21:36 Potassium 5.2 mmol/L (3.5-5.1) H D 12/12/18 05:32 POC Chloride 106 mEq/L (101-112) 12/09/18 21:36 Chloride 109 mmol/L (98-107) H 12/12/18 05:32 Carbon Dioxide 19 mmol/L (21-32) L 12/12/18 05:32 POC Total CO2 23 mEq/l (24-31) L 12/09/18 21:36 Anion Gap 10.0 (3-11) 12/12/18 05:32 POC Anion Gap 16.0 mmol/L (16-25) 12/09/18 21:36 POC BUN 41 mg/dl (7-18) H 12/09/18 21:36 BUN 32 mg/dl (7-18) H 12/12/18 05:32 Creatinine 2.13 mg/dl (0.6-1.2) H D 12/12/18 05:32 POC Creatinine 1.9 mg/dl (0.6-1.3) H 12/09/18 21:36 Est Cr Clr Drug Dosing 26.7 ml/min 12/12/18 05:32 Est GFR ( Amer) 25.4 12/12/18 05:32 Est GFR (Non-Af Amer) 21.9 12/12/18 05:32 BUN/Creatinine Ratio 15.0 (10-20) 12/12/18 05:32 Glucose 230 mg/dl (70-99) H 12/12/18 05:32 POC Glucose 220 (70-99) H 12/12/18 10:49 POC Glucose (other) 176 mg/dl (70-99) H 12/09/18 21:36 Lactate 1.0 mmol/L (0.4-2.0) 12/11/18 07:08 Calcium 7.9 mg/dl (8.5-10.1) L 12/12/18 05:32 POC Ioniz Calcium Julia 1.05 mmol/l (1.12-1.32) L 12/09/18 21:36 Magnesium 1.9 mg/dl (1.8-2.4) 12/12/18 05:32 Total Bilirubin 0.4 mg/dl (0.2-1) 12/09/18 21:46 AST 36 U/L (15-37) 12/09/18 21:46 ALT 57 U/L (12-78) 12/09/18 21:46 Alkaline Phosphatase 86 U/L (45-117) 12/09/18 21:46 Total Creatine Kinase 58 U/L (26-192) 12/09/18 21:46 CK-MB (CK-2) 2.1 ng/ml (0.5-3.6) 12/09/18 21:46 CK/CKMB % Calc 3.6 (0-3.0) H 12/09/18 21:46 Troponin I < 0.015 ng/ml (0-0.045) 12/09/18 21:46 Total Protein 6.5 gm/dl (6.4-8.2) 12/09/18 21:46 Albumin 2.8 gm/dl (3.4-5.0) L 12/09/18 21:46 Globulin 3.7 gm/dl (2.5-4.0) 12/09/18 21:46 Albumin/Globulin Ratio 0.8 (0.9-2) L 12/09/18 21:46 Random Cortisol 66.11 mcg/dl 12/09/18 23:38 Cortisol AM Sample 10.22 mcg/dl (4.3-22.4) 12/11/18 07:08 Nasal Screen MRSA (PCR) Negative (Negative) 12/10/18 03:38 Influenza Type A (PCR) Neg for Influ A (Neg) 12/09/18 21:55 Influenza Type B (PCR) Neg for Influ B (Neg) 12/09/18 21:55 Medications Administered Current Inpatient Medications Acetaminophen (Tylenol) 650 mg PO Q4H PRN PRN Reason: Pain or Fever Stop: 01/09/19 03:05 Amiodarone HCl (Cordarone) 200 mg PO Q12 [facility] Stop: 01/09/19 08:59 Last Admin: 12/12/18 07:54 Dose: 200 mg Documented by: Apixaban (Eliquis) 5 mg PO BID DORYS Stop: 01/09/19 08:59 Last Admin: 12/12/18 07:55 Dose: 5 mg Documented by: Aspirin (Ecotrin Ectab) 81 mg PO DAILY DORYS Stop: 01/09/19 08:59 Last Admin: 12/12/18 07:55 Dose: 81 mg Documented by: Atorvastatin Calcium (Lipitor) 40 mg PO DAILY DORYS Stop: 01/09/19 08:59 Last Admin: 12/12/18 07:54 Dose: 40 mg Documented by: Dextrose (Dextrose 50%) 25 - 50 ml IV UD PRN; Protocol PRN Reason: Hypoglycemia Protocol Stop: 01/09/19 03:05 Docusate Sodium (Colace) 100 mg PO BID DORYS Stop: 01/09/19 08:59 Last Admin: 12/12/18 07:54 Dose: 100 mg Documented by: Ferrous Sulfate (Feosol) 325 mg PO DAILY DORYS Stop: 01/09/19 08:59 Last Admin: 12/12/18 07:55 Dose: 325 mg Documented by: Gabapentin (Neurontin) 100 mg PO Q12 [facility]ORYS Stop: 01/09/19 08:59 Last Admin: 12/12/18 07:55 Dose: 100 mg Documented by: Glucagon (Glucagen) 1 mg SQ UD PRN; Protocol PRN Reason: Hypoglycemia Protocol Stop: 01/09/19 03:05 Glucose (Glucose 40%) 15 - 30 gm PO UD PRN; Protocol PRN Reason: Hypoglycemia Protocol Stop: 01/09/19 03:05 Glucose (Dex4 Glucose) 4 - 8 tabs PO UD PRN; Protocol PRN Reason: Hypoglycemia Protocol Stop: 01/09/19 03:05 Lactated Ringer's (Lr) 1,000 mls @ 100 mls/hr IV .Q10H DORYS Stop: 01/11/19 12:59 Insulin Aspart (Novolog Flexpen) 0 units SC ACHS DORYS Stop: 01/09/19 07:29 Last Admin: 12/12/18 12:14 Dose: 4 units Documented by: Ioversol (Optiray 320 125ml) 113 ml IV ONCE PRN PRN Reason: Interaction Checking Stop: 12/13/18 22:45 Last Admin: 12/09/18 22:46 Dose: 1 ml Documented by: Metoprolol Succinate (Toprol Xl) 25 mg PO DAILY DORYS Stop: 01/09/19 08:59 Last Admin: 12/12/18 07:55 Dose: 25 mg Documented by: Miscellaneous (Carbohydrates For Hypoglycemia) 15 - 30 gm PO UD PRN PRN Reason: Hypoglycemia Treatment Stop: 01/09/19 03:05 Ondansetron HCl (Zofran) 4 mg IV Q6H PRN PRN Reason: Nausea Stop: 01/09/19 10:43 Last Admin: 12/12/18 10:44 Dose: 4 mg Documented by: Pantoprazole Sodium (Protonix) 40 mg PO BID [facility] Stop: 01/09/19 08:59 Last Admin: 12/12/18 07:55 Dose: 40 mg Documented by: Sennosides (Senokot) 8.6 mg PO DAILY [facility] Stop: 01/09/19 08:59 Last Admin: 12/12/18 07:59 Dose: Not Given Documented by: Resident Activity Tracking Resident Involvement: Resident Care Provided Care Provided: Adult Hospital Medicine (1) Hypotension Hypotension type: unspecified hypotension type Qualified Code(s): I95.9 - Hypotension, unspecified
[2018-12-12] MEDS: LACTATED RINGER'S 1,000 ML IV SCH (13:34)
[2018-12-13 06:55] LABS: Basophils # (auto) 0.05 K/uL (0-0.2); Basophils % (auto) 0.6 %; Eosinophils # (auto) 0.16 K/uL (0-0.5); Eosinophils % (auto) 1.8 %; Hematocrit (blood only) 31.5 % (37-47); Hemoglobin 9.7 g/dL (12.0-16.0); Immature Granulocytes # (auto) 0.11 K/uL (0.00-0.02); Immature Granulocytes % (auto) 1.2 %; Lymphocytes # (auto) 1.77 K/uL (1.2-3.4); Mean Corpuscular Hgb Conc 30.8 g/dL (32-36); Mean Corpuscular Volume 83.6 fL (80-100); Mean Platelet Volume 11.1 fL (7.4-10.4); Monocytes # (auto) 0.99 K/uL (0.11-0.59); Monocytes % (auto) 11.2 %; Neutrophils # (auto) 5.75 K/uL (1.4-6.5); Neutrophils % (auto) 65.2 %; Platelet Count 209 K/uL (130-400); RDW Coefficient of Variation 21.5 % (11.5-14.5); RDW Standard Deviation 60.9 fL (36.4-46.3); Red Blood Count 3.77 M/uL (4.2-5.4); White Blood Count 8.83 K/uL (4.8-10.8)
[2018-12-13 07:05] LABS: Appearance Urine Cloudy (Clear); Bacteria Urine Automated Negative (Negative); Bilirubin Urine Negative (Negative); Blood Urine Trace (Negative); Color Urine Yellow; Epithelial Cell Urine Auto >30 /lpf (0-5); Glucose Urine UA Trace (Negative); Ketones Urine Negative (Negative); Leukocyte Esterase Urine 1+ (Negative); Nitrite Urine Negative (Negative); Protein Urine Negative (Negative); Specific Gravity Urine 1.023 (1.000-1.030); Urobilinogen Urine Negative (Negative); WBC Urine Automated >30 /hpf (0-5)
[2018-12-13 07:26] LABS: Anisocytosis Present
[2018-12-13] MEDS: ATORVASTATIN 40 MG TAB PO SCH (07:27)
[2018-12-13] MEDS: GABAPENTIN 100 MG CAP PO SCH ×2 (07:27→20:24)
[2018-12-13] MEDS: SENNA 8.6 MG TAB PO SCH (07:27)
[2018-12-13] MEDS: FERROUS SULFATE 325 MG TAB PO SCH (07:27)
[2018-12-13] MEDS: PANTOprazole 40 MG TAB PO SCH ×2 (07:27→20:26)
[2018-12-13] MEDS: APIXABAN 5 MG TABLET PO SCH ×2 (07:28→20:25)
[2018-12-13] MEDS: ASPIRIN 81 MG ECTAB PO SCH (07:28)
[2018-12-13 07:30] LABS: Cast Urine Automated 0 /lpf (0-5); RBC Urine Automated 0-4 /hpf (0-4)
[2018-12-13] MEDS: METOPROLOL SUCC 25MG EXT REL TAB PO SCH (07:30)
[2018-12-13] MEDS: DOCUSATE SODIUM 100 MG CAP PO SCH ×2 (07:30→20:24)
[2018-12-13 07:31] LABS: BUN Creatinine Ratio 15.6 (10-20); Calcium 7.8 mg/dl (8.5-10.1); Creatinine Clr Calc Pharmacy 29.1 ml/min; Est GFR (African American) 27.9; Est GFR (Non-African American) 24.1; Potassium 4.5 mmol/L (3.5-5.1)
[2018-12-13] MEDS: AMIODARONE 200 MG TAB PO SCH ×2 (07:43→20:26)
[2018-12-13] MEDS: INSULIN ASPART 100 UNITS/ML 3 ML PEN SC SCH ×4 (07:45→20:29)
--- NOTE | 2018-12-13 11:17 | Family Medicine Progress Note ---
Date of Service December 13, 2018 Assessment & Plan (1) Hypotension: 78-year-old female was admitted (transferred from [facility]) on 10 December 2018 for hypoxia, cyanosis, and increased fatigue. Hypotension: Per [facility] records, initial BP was 94/66. Comparison on 26Feb was 118/66. Initial cause thought to be multifactorial to include dehydration and adrenal insufficiency. Afebrile, no leukocytosis, and lactate 3.8 (now resolved). Given IV fluids and hydrocortisone. 03Mar BCx NGTD. An infectious source seems unlikely at this point causing this relative mild hypotension. 04Mar TTE noted EF >70%, hyperdynamic LV, mild concentric LVH, as well as mild MR and TR. Have since stopped the empiric vancomycin, hydrocortisone, and Zosyn. Normal AM cortisol. Hypoxia: Per report, OSH was unable to obtain an SpO2 level initially and then was 90% on 4 L NC oxygen. Here, no hypoxia noted on room air. Monitoring. Atrial fibrillation and tachybradycardia syndrome s/p pacemaker: Noted to have some tachycardia overnight (5-6Mar) with concurrent increase in creatinine. Thought to be a bit volume depleted, so given IVF boluses and maintenance. Continue home metoprolol, amiodarone, Eliquis. Decreased peripheral pulses: On admit, BLE were cool to touch with diminished p ulses. No report of PVD and PMH. 04Mar u/s arterial duplex of the BLE noted no hemodynamically significant stenosis (see full report). Presently has good pulses, is warm to touch, and remains asymptomatic. Monitoring. Elevated creatinine: Initial Cr 1.91, improved after IVF, but then a bit worse. No recent creatinine comparisons available. Still thought to be volume-related. Unclear why she may be so volume-sensitive. Labs are not suggestive of DI. On maintenance LR at present. Hyperkalemia: Initial K 5.6, improved. Normal Na. EKG is afib with PVC. Is on the equipment monitor phototypesetting. Anemia: Admit hemoglobin 10.7, stabilized around 9s. Is on iron. Monitoring. Lung nodules: Per CTA chest, "multiple likely benign scattered solid pulmonary nodules measure up to 3 mm". Recommend follow-up as outpatient. 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 No new neuro deficits noted. On aspirin. - Hypertension, CAD s/p stent placement: On metoprolol succinate 25 mg PO daily. - Hyperlipidemia: Continue home atorvastatin. - Type II DM: At home is on metformin and NovoLog. Here is on sliding scale insulin. - GERD: Continue home pantoprazole. - Restless leg syndrome: Is on gabapentin for this. - Depression. Code status: DO NOT RESUSCITATE. Diet: Heart healthy, DM 2, minced and moist. DVT prophy: On home Eliquis. PT/OT: Deferred on admit (with plans to return to inpatient rehab). Disbo: Admitted to PCU telemetry. Will likely to return to [facility] on discharge. (2) Hypoxia: (3) Decreased pulses in feet: (4) Elevated serum creatinine: (5) Hyperkalemia: (6) Anemia: (7) Lung nodules: (8) History of CVA (cerebrovascular accident): (9) Hypertension: (10) Hypercholesteremia: (11) Diabetes mellitus: (12) Atrial fibrillation: (13) Tachycardia-bradycardia syndrome: (14) GERD (gastroesophageal reflux disease): (15) Restless leg syndrome: (16) Depression: Supervising Physician Co-Signing Physician Notes Patient seen and examined with the resident. Agree with history, physical exam, assessment and plan with the following updates/corrections: 78yo F at [facility] for CVA who presented with hypoxemia and mild hypotension. This morning, she is back to baseline. She still has some aphasia, but feels well overall. No major complaints. 1) Aphasia/prior CVA - Appears that her symptoms wax and wane, possibly due to cerebral perfusion. When she gets volume-down, she appears to have worse aphasia. At present, back to baseline. 2) Hypoxemia - Unclear etiology though possibly a mis-read as the patient has had good O2 sat on room air while inpatient. Will continue to monitor. 3) Hypotension - BP has been stable at 100-110/60-70. Stopped Zosyn on 12/11 as she had no real focal infection complaints/issues. 4) Acute kidney failure on CKD, unknown stage - Baseline Cr unclear, but down to 1.5 from 1.9 on admission after IV hydration. Cr back up to 2.1 on 12/12 when fluids were stopped. By 12/13, down to 2. Concern for mild/partial DI given she appears to have trouble keeping up with urinary losses, but her serum Na and urine osmolality give a mixed picture. Not sure that fluid restriction is the proper choice for her health. Will monitor. Subjective Found patient resting comfortably this morning in bed. She says that she feels "much better" today. She is eating her breakfast and did not note any particular concerns. Her bedside nurse does mention that she did not have much urine output yesterday. Physical Exam Vital Signs (Past 24 Hours): Last Vital Signs Temp 36.8 C 12/13/18 07:02 Pulse 77 12/13/18 07:02 Resp 16 12/13/18 03:30 BP 120/54 L 12/13/18 07:02 Pulse Ox 94 12/13/18 07:02 Physical Exam: General Appearance: Awake, alert & oriented, comfortable in general, NAD. CV: +S1S2 RRR, no murmur. Pulm: Clear to auscultation throughout. Abdomen: +BS, soft, non-tender, non-distended. Extremities: Trace pedal edema bilaterally. No calf tenderness. Moving all extremities naturally and easily. Distal extremities are warm with good cap refill. Neuro: She is moving her bilateral upper extremities naturally without obvious deficit. No obvious expressive aphasia this morning. Results & Data Laboratory Results Laboratory Results WBC 8.83 K/uL (4.8-10.8) 12/13/18 06:14 RBC 3.77 M/uL (4.2-5.4) L 12/13/18 06:14 Hgb 9.7 g/dL (12.0-16.0) L 12/13/18 06:14 POC Hgb 11.2 g/dl (12.0-16.0) L 12/09/18 21:36 Hct 31.5 % (37-47) L 12/13/18 06:14 POC Hct 33 % (37-47) L 12/09/18 21:36 MCV 83.6 fL (80-100) 12/13/18 06:14 MCH 25.7 pg (25-34) 12/13/18 06:14 MCHC 30.8 g/dL (32-36) L 12/13/18 06:14 RDW Std Deviation 60.9 fL (36.4-46.3) H 12/13/18 06:14 RDW Coeff of Josselin 21.5 % (11.5-14.5) H 12/13/18 06:14 Plt Count 209 K/uL (130-400) 12/13/18 06:14 MPV 11.1 fL (7.4-10.4) H 12/13/18 06:14 Immature Gran % (Auto) 1.2 % 12/13/18 06:14 Neut % (Auto) 65.2 % 12/13/18 06:14 Lymph % (Auto) 20.0 % 12/13/18 06:14 Saunders % (Auto) 11.2 % 12/13/18 06:14 Eos % (Auto) 1.8 % 12/13/18 06:14 Baso % (Auto) 0.6 % 12/13/18 06:14 Immature Gran # (Auto) 0.11 K/uL (0.00-0.02) H 12/13/18 06:14 Neut # (Auto) 5.75 K/uL (1.4-6.5) 12/13/18 06:14 Lymph # (Auto) 1.77 K/uL (1.2-3.4) 12/13/18 06:14 Saunders # (Auto) 0.99 K/uL (0.11-0.59) H 12/13/18 06:14 Eos # (Auto) 0.16 K/uL (0-0.5) 12/13/18 06:14 Baso # (Auto) 0.05 K/uL (0-0.2) 12/13/18 06:14 Absolute Nucleated RBC 0.02 K/uL (0-0) H 12/12/18 05:32 Nucleated RBC % (auto) 0.1 % 12/12/18 05:32 Hypersegmented Neuts 1+ 12/09/18 21:46 Giant Platelets 1+ 12/12/18 05:32 Hypochromasia Present 12/12/18 05:32 Anisocytosis Present 12/13/18 06:14 Pappenheimer Bodies 1+ 12/09/18 21:46 Ovalocytes 1+ 12/12/18 05:32 PT 11.9 Seconds (9.0-12.0) 12/09/18 21:46 INR 1.2 (0.9-1.1) H 12/09/18 21:46 APTT 26.4 Seconds (21.0-31.0) 12/09/18 21:46 PTT Ratio 1.0 12/09/18 21:46 POC Sodium 138 mEq/L (135-144) 12/09/18 21:36 Sodium 138 mmol/L (136-145) 12/13/18 06:14 POC Potassium 5.4 mEq/L (3.3-5.0) H 12/09/18 21:36 Potassium 4.5 mmol/L (3.5-5.1) 12/13/18 06:14 POC Chloride 106 mEq/L (101-112) 12/09/18 21:36 Chloride 110 mmol/L (98-107) H 12/13/18 06:14 Carbon Dioxide 21 mmol/L (21-32) 12/13/18 06:14 POC Total CO2 23 mEq/l (24-31) L 12/09/18 21:36 Anion Gap 7.0 (3-11) 12/13/18 06:14 POC Anion Gap 16.0 mmol/L (16-25) 12/09/18 21:36 POC BUN 41 mg/dl (7-18) H 12/09/18 21:36 BUN 31 mg/dl (7-18) H 12/13/18 06:14 Creatinine 1.97 mg/dl (0.6-1.2) H 12/13/18 06:14 POC Creatinine 1.9 mg/dl (0.6-1.3) H 12/09/18 21:36 Est Cr Clr Drug Dosing 29.1 ml/min 12/13/18 06:14 Est GFR ( Amer) 27.9 12/13/18 06:14 Est GFR (Non-Af Amer) 24.1 12/13/18 06:14 BUN/Creatinine Ratio 15.6 (10-20) 12/13/18 06:14 Glucose 117 mg/dl (70-99) H 12/13/18 06:14 POC Glucose 121 (70-99) H 12/13/18 07:28 POC Glucose (other) 176 mg/dl (70-99) H 12/09/18 21:36 Osmolality 294 mOsm/kg (280-300) 12/13/18 06:14 Lactate 1.0 mmol/L (0.4-2.0) 12/11/18 07:08 Calcium 7.8 mg/dl (8.5-10.1) L 12/13/18 06:14 POC Ioniz Calcium Julia 1.05 mmol/l (1.12-1.32) L 12/09/18 21:36 Magnesium 1.9 mg/dl (1.8-2.4) 12/12/18 05:32 Total Bilirubin 0.4 mg/dl (0.2-1) 12/09/18 21:46 AST 36 U/L (15-37) 12/09/18 21:46 ALT 57 U/L (12-78) 12/09/18 21:46 Alkaline Phosphatase 86 U/L (45-117) 12/09/18 21:46 Total Creatine Kinase 58 U/L (26-192) 12/09/18 21:46 CK-MB (CK-2) 2.1 ng/ml (0.5-3.6) 12/09/18 21:46 CK/CKMB % Calc 3.6 (0-3.0) H 12/09/18 21:46 Troponin I < 0.015 ng/ml (0-0.045) 12/09/18 21:46 Total Protein 6.5 gm/dl (6.4-8.2) 12/09/18 21:46 Albumin 2.8 gm/dl (3.4-5.0) L 12/09/18 21:46 Globulin 3.7 gm/dl (2.5-4.0) 12/09/18 21:46 Albumin/Globulin Ratio 0.8 (0.9-2) L 12/09/18 21:46 Random Cortisol 66.11 mcg/dl 12/09/18 23:38 Cortisol AM Sample 10.22 mcg/dl (4.3-22.4) 12/11/18 07:08 Urine Color Yellow 12/13/18 05:26 Urine Appearance Cloudy (Clear) H 12/13/18 05:26 Urine pH 5.0 (4.5-7.5) 12/13/18 05:26 Ur Specific [place] 1.023 (1.000-1.030) 12/13/18 05:26 Urine Protein Negative (Negative) 12/13/18 05:26 Urine Glucose (UA) Trace (Negative) H 12/13/18 05:26 Urine Ketones Negative (Negative) 12/13/18 05:26 Urine Blood Trace (Negative) H 12/13/18 05:26 Urine Nitrite Negative (Negative) 12/13/18 05:26 Urine Bilirubin Negative (Negative) 12/13/18 05:26 Urine Urobilinogen Negative (Negative) 12/13/18 05:26 Ur Leukocyte Esterase 1+ (Negative) H 12/13/18 05:26 Urine WBC (Auto) >30 /hpf (0-5) H 12/13/18 05:26 Urine RBC (Auto) 0-4 /hpf (0-4) 12/13/18 05:26 U Hyaline Cast (Auto) 0 /lpf (0-5) 12/13/18 05:26 U Epithel Cells (Auto) >30 /lpf (0-5) H 12/13/18 05:26 Urine Bacteria (Auto) Negative (Negative) 12/13/18 05:26 Urine Yeast Budding (None Prsent) H 12/13/18 05:26 Urine Osmolality 478 mOsm/kg (500-800) L 12/13/18 05:26 Ur Random Sodium 17 mmol/L 12/13/18 05:26 Nasal Screen MRSA (PCR) Negative (Negative) 12/10/18 03:38 Influenza Type A (PCR) Neg for Influ A (Neg) 12/09/18 21:55 Influenza Type B (PCR) Neg for Influ B (Neg) 12/09/18 21:55 Medications Administered Current Inpatient Medications Acetaminophen (Tylenol) 650 mg PO Q4H PRN PRN Reason: Pain or Fever Stop: 01/09/19 03:05 Amiodarone HCl (Cordarone) 200 mg PO Q12 [facility]OR[facility] Stop: 01/09/19 08:59 Last Admin: 12/13/18 07:43 Dose: 200 mg Documented by: Apixaban (Eliquis) 5 mg PO BID [facility] Stop: 01/09/19 08:59 Last Admin: 12/13/18 07:28 Dose: 5 mg Documented by: Aspirin (Ecotrin Ectab) 81 mg PO DAILY [facility] Stop: 01/09/19 08:59 Last Admin: 12/13/18 07:28 Dose: 81 mg Documented by: Atorvastatin Calcium (Lipitor) 40 mg PO DAILY [facility] Stop: 01/09/19 08:59 Last Admin: 12/13/18 07:27 Dose: 40 mg Documented by: Dextrose (Dextrose 50%) 25 - 50 ml IV UD PRN; Protocol PRN Reason: Hypoglycemia Protocol Stop: 01/09/19 03:05 Docusate Sodium (Colace) 100 mg PO BID DOR[facility] Stop: 01/09/19 08:59 Last Admin: 12/13/18 07:30 Dose: 100 mg Documented by: Ferrous Sulfate (Feosol) 325 mg PO DAILY [facility] Stop: 01/09/19 08:59 Last Admin: 12/13/18 07:27 Dose: 325 mg Documented by: Gabapentin (Neurontin) 100 mg PO Q12 [facility] Stop: 01/09/19 08:59 Last Admin: 12/13/18 07:27 Dose: 100 mg Documented by: Glucagon (Glucagen) 1 mg SQ UD PRN; Protocol PRN Reason: Hypoglycemia Protocol Stop: 01/09/19 03:05 Glucose (Glucose 40%) 15 - 30 gm PO UD PRN; Protocol PRN Reason: Hypoglycemia Protocol Stop: 01/09/19 03:05 Glucose (Dex4 Glucose) 4 - 8 tabs PO UD PRN; Protocol PRN Reason: Hypoglycemia Protocol Stop: 01/09/19 03:05 Lactated Ringer's (Lr) 1,000 mls @ 100 mls/hr IV .Q10H [facility] Stop: 01/11/19 12:59 Last Admin: 12/12/18 13:34 Dose: 100 mls/hr Documented by: Insulin Aspart (Novolog Flexpen) 0 units SC ACHS [facility] Stop: 01/09/19 07:29 Last Admin: 12/13/18 07:45 Dose: 4 units Documented by: Ioversol (Optiray 320 125ml) 113 ml IV ONCE PRN PRN Reason: Interaction Checking Stop: 12/13/18 22:45 Last Admin: 12/09/18 22:46 Dose: 1 ml Documented by: Metoprolol Succinate (Toprol Xl) 25 mg PO DAILY [facility] Stop: 01/09/19 08:59 Last Admin: 12/13/18 07:30 Dose: 25 mg Documented by: Miscellaneous (Carbohydrates For Hypoglycemia) 15 - 30 gm PO UD PRN PRN Reason: Hypoglycemia Treatment Stop: 01/09/19 03:05 Ondansetron HCl (Zofran) 4 mg IV Q6H PRN PRN Reason: Nausea Stop: 01/09/19 10:43 Last Admin: 12/12/18 10:44 Dose: 4 mg Documented by: Pantoprazole Sodium (Protonix) 40 mg PO BID [facility] Stop: 01/09/19 08:59 Last Admin: 12/13/18 07:27 Dose: 40 mg Documented by: Sennosides (Senokot) 8.6 mg PO DAILY [facility] Stop: 01/09/19 08:59 Last Admin: 12/13/18 07:27 Dose: 8.6 mg Documented by: Resident Activity Tracking Resident Involvement: Resident Care Provided Care Provided: Adult Hospital Medicine (1) Hypotension Hypotension type: unspecified hypotension type Qualified Code(s): I95.9 - Hypotension, unspecified
[2018-12-14 06:11] LABS: Basophils # (auto) 0.03 K/uL (0-0.2); Basophils % (auto) 0.4 %; Eosinophils # (auto) 0.27 K/uL (0-0.5); Eosinophils % (auto) 3.3 %; Hematocrit (blood only) 27.5 % (37-47); Hemoglobin 8.5 g/dL (12.0-16.0); Immature Granulocytes # (auto) 0.06 K/uL (0.00-0.02); Immature Granulocytes % (auto) 0.7 %; Lymphocytes # (auto) 1.34 K/uL (1.2-3.4); Lymphocytes % (auto) 16.4 %; Mean Corpuscular Hgb Conc 30.9 g/dL (32-36); Mean Corpuscular Volume 83.8 fL (80-100); Monocytes # (auto) 0.73 K/uL (0.11-0.59); Monocytes % (auto) 8.9 %; Neutrophils # (auto) 5.75 K/uL (1.4-6.5); Neutrophils % (auto) 70.3 %; Nucleated RBC # (auto) 0.04 K/uL (0-0); Nucleated RBC % (auto) 0.5 %; Platelet Count 198 K/uL (130-400); RDW Coefficient of Variation 21.6 % (11.5-14.5); RDW Standard Deviation 61.9 fL (36.4-46.3); Red Blood Count 3.28 M/uL (4.2-5.4); White Blood Count 8.18 K/uL (4.8-10.8)
[2018-12-14 06:33] LABS: Anisocytosis Present; Hypochromasia Present
[2018-12-14 06:45] LABS: BUN Creatinine Ratio 16.8 (10-20); Calcium 7.9 mg/dl (8.5-10.1); Creatinine Clr Calc Pharmacy 36.5 ml/min; Est GFR (African American) 36.7; Est GFR (Non-African American) 31.7; Potassium 4.5 mmol/L (3.5-5.1)
[2018-12-14] MEDS: LACTATED RINGER'S 1,000 ML IV SCH (07:08)
[2018-12-14] MEDS: DOCUSATE SODIUM 100 MG CAP PO SCH (07:45)
[2018-12-14] MEDS: ATORVASTATIN 40 MG TAB PO SCH (07:45)
[2018-12-14] MEDS: PANTOprazole 40 MG TAB PO SCH (07:45)
[2018-12-14] MEDS: AMIODARONE 200 MG TAB PO SCH (07:45)
[2018-12-14] MEDS: METOPROLOL SUCC 25MG EXT REL TAB PO SCH (07:45)
[2018-12-14] MEDS: APIXABAN 5 MG TABLET PO SCH (07:46)
[2018-12-14] MEDS: GABAPENTIN 100 MG CAP PO SCH (07:46)
[2018-12-14] MEDS: FERROUS SULFATE 325 MG TAB PO SCH (07:46)
[2018-12-14] MEDS: SENNA 8.6 MG TAB PO SCH (07:46)
[2018-12-14] MEDS: ASPIRIN 81 MG ECTAB PO SCH (09:44)
[2018-12-14] MEDS: INSULIN ASPART 100 UNITS/ML 3 ML PEN SC SCH ×3 (09:47→18:05)
--- NOTE | 2018-12-14 14:41 | Discharge Summary ---
Date of Service December 14, 2018 Admission HPI Per Admitting Provider Ms. Restrepo is a 78 year old, very pleasant lady with a history of left-sided MCA stroke with residual right-sided weakness and aphasia, coronary artery disease status post stent placement, uncontrolled type 2 diabetes mellitus [hemoglobin A1c of 11.8], atrial fibrillation, hyperlipidemia, hypertension, depression who was transferred to the emergency department from [facility] due to hypoxia, cyanosis, and feeling extremely fatigued. Per review of chart, [facility] was unable to obtain an SPO2 level while Ms. Restrepo was on room air. They placed her on 4 L oxygen via nasal cannula, at which time her O2 saturations were 90%. They reported her nailbeds were cyanotic, and the patient was complaining of being extremely nauseous and fatigued. Ms. Restrepo endorses having felt "funny", cold, nauseous and short of breath. She denies any fever or chills, and states that she is not currently in any pain anywhere. She denies chest pain, lightheadedness, dizziness, palpitations, vomiting, or abdominal pain. She states that she has difficulty with weakness over the right side of her body and with word finding, but she states this has been constant since her recent stroke. She reports no other complaints at this time. She states that she has been eating fine, and has not been ill recently. She does endorse decreased water intake, stating that she prefers to drink tea. Principal Diagnosis Low blood pressure - Possibly dehydration Discharge Exam Constitutional well developed, well nourished, cooperative and comfortable Eyes PERRL, conjunctivae normal, anicteric sclerae ENMT external ear and nose normal, oropharynx normal Respiratory normal respiratory effort, lungs clear to auscultation Cardiovascular RRR, no murmur, no edema Vessels: posterior tibial pulses present (diminished b/l), dorsalis pedis pulses present (diminished b/l) and radial pulses present Extremities: normal capillary refill (sluggish cap refill, left slower than right) and + pedal edema; no calf tenderness Gastrointestinal (Abdomen) Percussion/Palpation: abdomen soft; abdomen nontender, no guarding and abdomen not rigid Discharge Data Allergies Allergy/AdvReac Type Severity Reaction Status Date / Time morphine Allergy Unknown Verified 12/09/18 21:35 oxycodone Allergy Unknown Verified 12/09/18 21:35 Consultations 03/03/19 23:29 ED Decision to Admit Stat 12/10/18 03:06 Consult Case Management - Discharge Planning Routine Ordered Studies 12/09/18 20:38 CT angio chest PE protocol Stat 12/10/18 03:06 US arterial duplex [facility] Urgent Hospital Course (1) Hypotension: 78-year-old female was admitted (transferred from [facility]) on 10 December 2018 for hypoxia, cyanosis, and increased fatigue. Hypotension: Per [facility] records, initial BP was 94/66. Comparison on Feb was 118/66. Initial cause thought to be multifactorial to include dehydration and adrenal insufficiency. Afebrile, no leukocytosis, and lactate 3.8 (now resolved). Given IV fluids and hydrocortisone. 03Mar BCx NGTD. An infectious source seems unlikely at this point causing this relative mild hypotension. 04Mar TTE noted EF >70%, hyperdynamic LV, mild concentric LVH, as well as mild MR and TR. Have since stopped the empiric vancomycin, hydrocortisone, and Zosyn. Normal AM cortisol. Believe it was due to dehydration. She was encouraged to drink plenty of fluids to prevent recurrence. Hypoxia: Per report, OSH was unable to obtain an SpO2 level initially and then was 90% on 4 L NC oxygen. Here, no hypoxia noted on room air. No hypoxemia her entire hospitalization. Atrial fibrillation and tachybradycardia syndrome s/p pacemaker: Noted to have some tachycardia overnight (5-6Mar) with concurrent increase in creatinine. Thought to be a bit volume depleted, so given IVF boluses and maintenance. Continue home metoprolol, amiodarone, Eliquis. Heart rate was in the 70-90 range on discharge with stable BP. Decreased peripheral pulses: On admit, BLE were cool to touch with diminished pulses. No report of PVD and PMH. 04Mar u/s arterial duplex of the BLE noted no hemodynamically significant stenosis (see full report). Presently has good pulses, is warm to touch, and remains asymptomatic. Monitoring. Elevated creatinine: Initial Cr 1.91, improved after IVF, but then a bit worse. No recent creatinine comparisons available. Still thought to be volume-related. Unclear why she may be so volume-sensitive. Labs are not suggestive of DI. On discharge, Cr improved to 1.6. Will need BMP in 1 week to ensure Cr is stable. Hyperkalemia: Initial K 5.6, improved. Normal Na. EKG is afib with PVC. Is on the cardiac cath lab technologist. Anemia: Admit hemoglobin 10.7, stabilized around 9s. Is on iron. Monitoring. Lung nodules: Per CTA chest, "multiple likely benign scattered solid pulmonary nodules measure up to 3 mm". Recommend follow-up as outpatient. 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 No new neuro deficits noted. On aspirin. - Hypertension, CAD s/p stent placement: On metoprolol succinate 25 mg PO daily. - Hyperlipidemia: Continue home atorvastatin. - Type II DM: At home is on metformin and NovoLog. Here is on sliding scale insulin. - GERD: Continue home pantoprazole. - Restless leg syndrome: Is on gabapentin for this. - Depression. Code status: DO NOT RESUSCITATE. Diet: Heart healthy, DM 2, minced and moist. DVT prophy: On home Eliquis. PT/OT: Deferred on admit (with plans to return to inpatient rehab). Disbo: Admitted to PCU telemetry. Will likely to return to [facility] on discharge. (2) Hypoxia: (3) Decreased pulses in feet: (4) Elevated serum creatinine: (5) Hyperkalemia: (6) Anemia: (7) Lung nodules: (8) History of CVA (cerebrovascular accident): (9) Hypertension: (10) Hypercholesteremia: (11) Diabetes mellitus: (12) Atrial fibrillation: (13) Tachycardia-bradycardia syndrome: (14) GERD (gastroesophageal reflux disease): (15) Restless leg syndrome: (16) Depression: Total Time Total Time Spent Total Time Spent (In Minutes): 35 Total Time Includes: Examination of the Patient, Discharge Planning and Medication Reconciliation Discharge Plan Discharge Items Patient Disposition: Transfer Inpatient Rehab Fac Reason For Visit: HYPOTENSION,LACTIC ACIDOSIS Discharge Diagnosis: Hypotension, transient hypoxia Discharge Goals: Decrease discomfort, Improve function and Increase independence Activity: Per 'Additional Instructions' section Non-emergency contact: Primary Care Provider Call non-emergency contact if: you have any medication questions Follow-up/Referrals: Albert Groves [Primary Care Provider] - Diet: Carb Consistent or DM2 and Heart Healthy Diet Comment: Minced and moist Addtl Provider Instructions: You were transferred from [facility] on December 10, 2018 due to concerns for lower blood pressure and some low oxygen levels in your blood. While in our hospital, we evaluated the following issues: Hypotension (low blood pressure): While the exact cause is unclear, this was thought to be related to some dehydration. After multiple tests, there is no evidence of an infection at present, therefore we stopped the initial antibiotics you received. We also checked your heart with an ultrasound machine. - Overall it is important that you remain well-hydrated. Hypoxia (low blood oxygen levels): [facility] was concerned that your oxygen level was very low prior to arrival to the hospital. Fortunately, during your hospital stay your oxygen levels were normal without needing any extra oxygen. Concerns for cool/cold extremities: There was also initial concern that your legs were not getting enough blood flow. We did some testing of the blood flow in your legs. While it is not perfect, it does appear that you are getting adequate blood flow throughout your legs. Anemia (low blood counts): During her routine blood test, it was noted that the level of your red blood cells that carry around the oxygen are a bit low. - We recommend that you follow-up closely with your treating providers to make sure these levels remain in a safe range. Lung nodules: When we did the CT scan of your chest, the scan showed that you have multiple small (up to 3 mm) lung nodules present. We recommend that you follow-up with your primary care provider as soon as possible for close monitoring of these. Overall, this should be no changes to your previous medication regimen that you are on prior to this hospitalization. You are being discharged back to [facility] for continuation of your inpatient rehabilitation. Please work with the doctors and medical teams there for ongoing care. Please follow-up with your primary care provider as soon as possible for close post- hospitalization continuity of care. Prescriptions: Continued sennosides [senna] 8.6 mg Tablet 8.6 mg PO DAILY RF: 0 amiodarone 200 mg Tablet 200 mg PO Q12 RF: 0 aspirin [Aspir-81] 81 mg Tablet,Delayed Release (Dr/Ec) 81 mg PO DAILY RF: 0 Novolog U-100 Insulin aspart 100 unit/mL Solution 1 sliding scale dose SUBCUT UD RF: 0 pantoprazole 40 mg Tablet,Delayed Release (Dr/Ec) 40 mg PO BID RF: 0 ferrous sulfate 325 mg (65 mg iron) Tablet 325 mg PO DAILY RF: 0 nitroglycerin [Nitrostat] 0.4 mg Tablet, Sublingual 0.4 mg Sublingual UD PRN (Reason: Chest Pain) RF: 0 docusate sodium 100 mg Capsule 100 mg PO BID RF: 0 gabapentin 100 mg Capsule 100 mg PO Q12 RF: 0 metoprolol succinate 25 mg Tablet Extended Release 24 Hr 25 mg PO DAILY RF: 0 Eliquis 5 mg Tablet 5 mg PO BID RF: 0 atorvastatin 40 mg tablet 40 mg PO DAILY RF: 0 acetaminophen [Tylenol Extra Strength] 500 mg Tablet 500 mg PO Q4 PRN (Reason: Pain) RF: 0 metformin 500 mg Tablet 500 mg PO QDD RF: 0 metformin 1,000 mg Tablet 1,000 mg PO QAM RF: 0 Stand-Alone Forms: [facility] Discharge Orders: Discharge Order (Routine); Ordered 12/14/18 Ordered By: Artis Woods Skilled Items Patient informed of condition?: Yes DNR: Yes Discharge Level of Care: Acute rehab Communicable Disease: No Discharge Prognosis: Stable Admission Data Admit Date/Time: 12/10/18 01:53 Attending Provider: Artis Woods Admit Provider: Rohith Lugo Primary Care Provider: Albert Groves Other Providers: Artis Woods ; Akbar Ramirez Service: Medical Other Interventions: Discharge Summary Assessment (RN) Last Done: 12/14/18 14:21
== END 2018-12-14 19:13 | DRG 644 ==
LOC: ED 20:25 → SUATTDRO 12-10 01:53 → 2S 12-10 01:53 → 4W 12-13 18:42